=== PATIENT | male | born 1955 | race Caucasian/White ===

== ENCOUNTER 2019-09-30 17:06 | Inpatient (IN) ==
[2019-09-30] MEDS ORDERED: FAMOTIDINE 20MG IV PUSH 20 MG/5 ML SYR IV STA ×2 (17:21→17:36)
[2019-09-30] MEDS ORDERED: SODIUM CHLORIDE 0.9% 1000ML 1,000 ML IV SCH (17:30)
[2019-09-30] MEDS ORDERED: PANTOprazole 80 MG in DEXTROSE 5% 100 ML IV ONE (17:30)
[2019-09-30] MEDS ORDERED: SODIUM CHLORIDE 0.9% 250 ML IV PRN (17:44)
[2019-09-30 17:50] LABS: iSTAT Creatinine 1.9 mg/dl (0.6-1.3); iSTAT Hemoglobin 5.4 g/dl (14.0-18.0); iSTAT Ionized Calcium 1.06 mmol/l (1.12-1.32); iSTAT Potassium 4.4 mmol/L (3.3-5.0)
[2019-09-30 17:53] LABS: Alanine Aminotransferase 18 U/L (12-78); Albumin Level 2.8 gm/dl (3.4-5.0); Aspartate Aminotransferase 19 U/L (15-37); BUN Creatinine Ratio 55.4 (10-20); Blood Urea Nitrogen 101 mg/dl (7-18); Calcium 7.8 mg/dl (8.5-10.1); Carbon Dioxide 25 mmol/L (21-32); Chloride 100 mmol/L (98-107); Est GFR (African American) 43.6; Est GFR (Non-African American) 37.6; Glucose 189 mg/dl (70-99); Potassium 4.6 mmol/L (3.5-5.1); Sodium 134 mmol/L (136-145)
[2019-09-30 17:58] LABS: Albumin Globulin Ratio 1.2 (0.9-2); Alkaline Phosphatase 39 U/L (45-117); Bilirubin,Total 0.2 mg/dl (0.2-1); Globulin 2.4 gm/dl (2.5-4.0); Total Protein 5.2 gm/dl (6.4-8.2)
[2019-09-30 18:09] LABS: Partial Thromboplastin Ratio 1.3; Partial Thromboplastin Time 35.8 Seconds (21.0-31.0)
[2019-09-30 18:26] LABS: Hematocrit (blood only) 16.2 % (42-52); Hemoglobin 5.3 g/dL (14.0-18.0); Mean Corpuscular Hemoglobin 26.5 pg (25-34); Mean Corpuscular Hgb Conc 32.7 g/dL (32-36); Mean Platelet Volume 9.1 fL (7.4-10.4); Platelet Count 207 K/uL (130-400); RDW Coefficient of Variation 19.2 % (11.5-14.5); RDW Standard Deviation 55.2 fL (36.4-46.3); White Blood Count 20.96 K/uL (4.8-10.8)
--- NOTE | 2019-09-30 18:26 | XRay Report ---
SINGLE VIEW CHEST CLINICAL HISTORY: Dyspnea. FINDINGS: 2 AP, portable, upright chest radiographs are obtained. No prior studies are available for comparison at the time of dictation. The examination is degraded by portable technique and patient ro tation. The patient is status post midline sternotomy and cardiac valve surgery. The heart is enlarge d noting atherosclerotic calcification of the thoracic aorta. The pulmonary vasculature is noncongest ed. Emphysematous change is noted. There is bibasilar scarring/atelectasis. No airspace consolidation or large pleural effusion is identified. Enlargement of the central pulmonary arteries suggests pulm onary artery hypertension. No pneumothorax is seen. The skeletal structures are osteopenic. The bony thorax is grossly intact. Degenerative change is noted in the shoulders and thoracic spine. IMPRESSION: Cardiomegaly and emphysema with no acute cardiopulmonary abnormality. ACT 112: Negative or not required by law. Electronically signed by: Otis Stewart M.D. 09/30/2019 6:25 PM
[2019-09-30] MEDS ORDERED: PIPERACILL/TAZOBAC CONSULT ACTIVE PRN (18:28)
[2019-09-30] MEDS ORDERED: SODIUM CHLORIDE 0.9% 1000ML 500 ML IV ONE (18:28)
[2019-09-30] MEDS ORDERED: PIPERACILLIN/TAZOBACTAM 4.5 GM/120 ML BAG IV ONE (18:28)
[2019-09-30] MEDS ORDERED: PHYTONADIONE 10 MG in SODIUM CHLORIDE 0.9% 50 ML IV ONE (18:38)
[2019-09-30] MEDS ORDERED: KCENTRA IV ONE (18:45)
[2019-09-30 18:49] LABS: Anisocytosis Present; Basophilic Stippling Occasional; Basophils # (auto) 0.03 K/uL (0-0.2); Basophils % (auto) 0.1 %; Eosinophils # (auto) 0.19 K/uL (0-0.5); Eosinophils % (auto) 0.9 %; Immature Granulocytes # (auto) 0.31 K/uL (0.00-0.02); Immature Granulocytes % (auto) 1.5 %; Lymphocytes # (auto) 2.04 K/uL (1.2-3.4); Lymphocytes % (auto) 9.7 %; Monocytes # (auto) 0.68 K/uL (0.11-0.59); Monocytes % (auto) 3.2 %; Neutrophils # (auto) 17.71 K/uL (1.4-6.5); Neutrophils % (auto) 84.6 %; Polychromasia 1+
[2019-09-30] MEDS ORDERED: PHYTONADIONE 10 MG in SODIUM CHLORIDE 0.9% 50 ML IV SCH (19:00)
--- NOTE | 2019-09-30 19:41 | History & Physical Report ---
Date of Service September 30, 2019 Assessment & Plan (1) Upper gastrointestinal bleed: (2) Anemia: (3) Supratherapeutic INR: (4) H/O mechanical aortic valve replacement: -Admit to ICU -Patient presenting for evaluation of lightheadedness, dizziness, black stools. 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 -According to the patient, he was admitted to [facility] in [place], [place] for stomach ulcer, required blood transfusion. Patient is anticoagulated on Coumadin for history of mechanical aortic valve replacement, Coumadin was resumed at the end of the hospitalization. Will obtain records. -In the ED, Hgb 5.3, INR 4.0, hypotensive with systolic BPs in the 90s -ED discussed case with Dr. Fish who recommends vitamin K and Kcentra -2 units PRBC transfusion -CT ABD/pelvis -S/p IV famotidine and PPI bolus and drip in ED, will continue PPI drip -N.p.o. -GI consult -Noted history of gastric bypass in 2000 (5) Leukocytosis: -WBC 20 K -No obvious infectious source at this time, checking CT ABD/pelvis -? Stress response from severe GI bleeding -Lactate 1.9 -Blood cultures obtained (6) Abnormal renal function: -Creatinine 1.8, unknown baseline -Obtain records from recent hospitalization -Continue to monitor renal functions (7) Hypertension: -Currently hypotensive, holding lisinopril and HCTZ (8) COPD (chronic obstructive pulmonary disease): -Has some wheezing seen on exam -Denies sputum production, hold on antibiotics for now -PRN nebs, continue home inhalers (9) DVT prophylaxis: -SCDs due to acute GI bleeding History of Present Illness Chief Complaint: Lightheadedness and dizziness Primary Care Provider: NO PCP 64-year-old male who presents the ED for evaluation of lightheadedness and dizziness. 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 About 8 weeks ago, he reports he was diagnosed with a stomach ulcer. Reports that he was hospitalized and required blood transfusion. Patient is anticoagulated on Coumadin for history of mechanical aortic valve replacement. Coumadin was resumed after hospitalization. Patient reports that 3 days ago, he noted his stools were black. He self stopped his Coumadin. He did not seek medical attention. Patient reports he has had progressively worsening lightheadedness and dizziness. He reports he decided to drive his truck anyway. Lightheadedness and dizziness became so severe today that he pulled over and called EMS. Patient was brought to the ED for further evaluation. Patient denies syncopal events. No chest pain. Reports exertional shortness of breath over the past couple of days. Has a dry, nonproductive cough which he has intermittently. No sputum production. Denies fevers and chills. No abdominal pain, nausea, vomiting, diarrhea. Denies urinary symptoms. In the ED, Hgb 5.3, INR 4.0. Hypotensive with systolic BPs in the 90s, improving after IVF. WBC 20 K. ED discussed case with Dr. Fish who recommends IV vitamin K and Kcentra. Patient was given a Protonix bolus and started on a drip, also given IV famotidine and IV Zosyn. Allergies Allergy/AdvReac Type Severity Reaction Status Date / Time "Cough medicine" AdvReac Unknown "Jittery" Uncoded 09/30/19 17:28 / "couldn't sleep" Home Medications Home Medications Medication Instructions Recorded Confirmed Type amlodipine 2.5 mg PO DAILY 09/30/19 09/30/19 History budesonide-formoterol [Symbicort] 2 puff INHALATION BID PRN 09/30/19 09/30/19 History cyanocobalamin (vitamin B-12) 2,500 mcg SUBLINGUAL DAILY 09/30/19 09/30/19 History [Vitamin B-12] diphenhydramine-acetaminophen 1 tab PO HS PRN 09/30/19 09/30/19 History [Tylenol PM Extra Strength] [id number] 1 inh INHALATION DAILY 09/30/19 09/30/19 History [Trelegy Ellipta] hydrochlorothiazide 25 mg PO DAILY 09/30/19 09/30/19 History iron 28 mg PO DAILY 09/30/19 09/30/19 History lisinopril 40 mg PO DAILY 09/30/19 09/30/19 History naproxen sodium 220 mg PO Q12H PRN 09/30/19 09/30/19 History warfarin 5 mg PO DAILY 09/30/19 09/30/19 History Past Med/Surg History Medical History COPD (chronic obstructive pulmonary disease) CVA (cerebral vascular accident) Hypertension Surgical History H/O gastric bypass H/O mechanical aortic valve replacement Family History Mother Lung cancer Father Emphysema lung Social History Preferred Language: German Communication Ability: Effective Esthetician/Spa Coordinator Required: No Beliefs That Will Affect Care: None Current Living Situation: Spouse current occupational status: employed Other Information That Helps Us Care for You: No Feels Safe at Home: Yes Safety Concerns: Feels Safe At This Time Smoking Status: Former smoker Tobacco Type: smokeless tobacco ; Do You Dip or Chew Tobacco: Yes ; Hx Alcohol Use: Yes Alcohol type: beer and hard liquor Alcohol Intake Frequency: Rarely Hx Substance Use: No Review of Systems Review of Systems: ROS per HPI, all other systems reviewed and negative Physical Exam Constitutional: WD/WN, vitals as above no acute distress Eyes: PERRL, conjunctivae normal, anicteric sclerae ENMT: external ear and nose normal, oropharynx normal Respiratory: normal respiratory effort; no respiratory distress Auscultation: + wheezes (Scattered, expiratory) Cardiovascular: Rate/Rhythm: regular rate and regular rhythm Vessels: normal peripheral pulses Extremities: no edema Gastrointestinal (Abdomen): normal bowel sounds, soft, nontender, no hepatosplenomegaly Inspection/Auscultation: + abdomen distended Musculoskeletal: no cyanosis or clubbing, extremities motor strength 5/5 Skin: no rashes, warm and dry + pallor Neurologic: PERRL, EOMI, accommodation nl, no face palsy, no dysarthria Psychiatric: A+Ox3, euthymic affect Results & Data Vital Signs (Past 12 Hours) Vital Signs Temp Pulse Pulse Resp BP BP Pulse Ox 09/30/19 19:28 36.6 C 86 20 103/55 L 94 09/30/19 19:20 36.6 C 81 18 103/44 L 91 09/30/19 19:01 81 24 97 09/30/19 19:00 82 24 96/46 L 100 09/30/19 18:57 82 22 97/39 L 97 09/30/19 18:45 85 21 94/41 L 94 09/30/19 18:44 82 86 21 98/47 L 94/41 L 92 09/30/19 18:31 85 24 86/34 L 93 09/30/19 18:30 84 27 H 09/30/19 18:15 79 22 91/47 L 89 L 09/30/19 18:03 87 22 95/43 L 92 09/30/19 18:01 86 21 95/43 L 93 09/30/19 18:00 86 20 09/30/19 17:45 88 22 09/30/19 17:41 88 20 09/30/19 16:54 37.1 C 89 24 104/43 L 94 Laboratory Results Short CBC 09/30/19 Range/Units 16:46 WBC 20.96 H (4.8-10.8) K/uL Hgb 5.3 L* (14.0-18.0) g/dL Hct 16.2 L* (42-52) % Plt Count 207 (130-400) K/uL BMP 09/30/19 16:46 Sodium 134 L Potassium 4.6 Chloride 100 Carbon Dioxide 25 BUN 101 H Creatinine 1.83 H Glucose 189 H Calcium 7.8 L Cardiac Enzymes 09/30/19 Range/Units 16:46 Troponin I 0.020 (0-0.045) ng/ml Liver Function 09/30/19 Range/Units 16:46 Total Bilirubin 0.2 (0.2-1) mg/dl AST 19 (15-37) U/L ALT 18 (12-78) U/L Alkaline Phosphatase 39 L (45-117) U/L Albumin 2.8 L (3.4-5.0) gm/dl Diagnostic Findings CXR IMPRESSION: Cardiomegaly and emphysema with no acute cardiopulmonary abn ormality. Code Status & VTE Plan Code Status Patient is a full code as per my discussion with him. VTE Prophylaxis Plan VTE Prophylaxis will be ordered: Yes Supervising Physician Co-Signing Physician Notes Care coordinated with KETTY Billy. Agree with above note. Patient seen and examined. Please refer to her notes for full details. Vital signs reviewed. Physical exam: General exam: Alert and oriented. Not in acute distress. CVS: S1 and S2 heard, regular rate and rhythm, no murmurs. RS: Clear to auscultation, no wheezing or crackles. ABD: Soft, bowel sounds present, nontender, no distention. FIELD ATTENDANT: Nonfocal. EXT: No edema, no erythema. Labs: Reviewed. Assessment and plan: 64M who was recently admitted to hospital in [place] and received prbc transfusion for GI bleed and coumadin resumed on discharge for his mechanical AVR presents with 3 days of black stools, SOB on exertion, Dizziness. 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 GI Bleed Hb 5.3 on presentation ppi drip to transfuse prbc to keep hb>8.0 Admitted to ICU. close monitor GI consult mechanical AVR coumadin 4.0 on presentation received vitamin k and kaycentra. follow INR. Restarting anticogulation as soon as possible. Hx of gastric bypass surgery Other diagnosis and plan of care as per Marissa HDEZ. Addison li MD. (1) Leukocytosis Leukocytosis type: unspecified Qualified Code(s): D72.829 - Elevated white blood cell count, unspecified
[2019-09-30] MEDS: PANTOprazole 40 MG in DEXTROSE 5% 100 ML IV SCH (19:43)
[2019-09-30] MEDS ORDERED: ICU PROTOCOL FOR HYPERGLYCEMIA PRN (20:54)
--- NOTE | 2019-09-30 20:59 | Critical Care Consultation ---
Date of Consultation September 30, 2019 Assessment & Plan (1) Admitted to intensive care unit: Reason Critically Ill: 64-year-old male with presumed upper GI bleed complicated by history of gastric bypass surgery as well as recent intervention for gastric ulcer within the last 8 weeks. NEURO - * CAM ICU: NEGATIVE * Monitor for changes in mental status suggesting hypoperfusion in the anemic patient. CARDIAC/VASCULAR - * h/o aortic mechanical valve repair secondary to rheumatic heart disease: * Previously anticoagulated on Coumadin. * Received PCC/vitamin K secondary to significant anemia from GI losses. * Will monitor closely as patient certainly is at risk for coagulopathy. * Monitor on telemetry. RESPIRATORY - * COPD. * Saturating well on room air. * Assess and treat as needed. * Continue home Rx. GI/NUTRITION - * Presumed UGIB: * Melanotic stools w/ recent h/o gastric ulcer w/ intervention. * Complicated by Coumadin use. * Reversed w/ PCC, Vitamin K. * Will transfuse. * Protonix gtt. * Discussed the case with Dr. Sierra of [facility]. There is no concern with prior history of gastric bypass surgery which would require any higher level of direct diagnostic imaging capability that we have at this facility. * Appreciate GI recommendations after appropriate resuscitation. * NPO pending need for possible intervention. RENAL/LYTES - * CHARMAINE: * This is with presumed normal baseline renal function. * IVF: NSS@100mL/hr - * No concerns at this point. ENDO - * No h/o DM or Known thyroid disease. * BSGs per unit protocol. ISS --> gtt per unit policy. HEME - * Acute blood loss anemia 2/2 UGIB: * Per Dr. Muniz, received appropriate dosing of PCCs/Vitamin K for rever nir. * Will transfuse PRBCs x2 to start w/ a goal hemoglobin of ~8. * Hold home Coumadin dosing for now. ID - * SBP Prophylaxis: * Will cover w/ Rocephin in the UGIB patient w/o known h/o esophageal varices or cirrhosis. * Chose Rocephin as Cefotaxime is unavailable at this institution and Zosyn is not necessary, particularly in regards to patient's renal function. * Lactate WNL * Leukocytosis of ?? significance at this point. LINES/IV ACCESS - * PIVs x2 DVT PROPHYLAXIS - * Will hold on chemoprophylaxis 2/ UGIB * SCDs I have personally spent 35 minutes of critical care time in the direct man agement of this patient. This is a life/limb threatening event. This includes time spent evaluating patient, direct bedside care, chart review, placing orders, interpretation of diagnostic studies, discussion with consultants, patient, and family members, as well as other required patient management activities. This time is exclusive of all separately billable procedures, and teaching time and separate from and in addition to any other critical care service time. Thank you for allowing us to participate in the care of this patient. Please refer to my attending physician's documentation for any further recommendations. (2) Upper gastrointestinal bleed: (3) Hypotension: (4) Elevated INR (international normalized ratio): (5) COPD (chronic obstructive pulmonary disease): (6) Leukocytosis: (7) H/O mechanical aortic valve replacement: (8) Anemia: (9) Hypertension: (10) Abnormal renal function: (11) Anemia due to blood loss: Supervising Physician Co-Signing Physician Notes I evaluated the patient in C 9 of the emergency department. During my evaluation the patient was not complaining of chest pain or shortness of breath. He was already receiving 1 unit of packed red blood cells. Patient is critically ill due to known gastric ulcer diagnosed approximately 8 weeks ago for which he was given 5 units of packed red blood cells. 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 We [facility] [place] [facility] practitioner florian. We discussed the case with Dr. Sierra who is agreeable with accepting the patient for possible endoscopic evaluation. We will continue with packed red blood cell resuscitation. He received Kcentra in the emergency department. Patient is not complaining of abdominal pain to make me suspect he has a perforated ulcer at this time. Aside from his gastric bypass he has not had repeat surgery since then. History of Present Illness Attending Physician: Jacinta Garcia MD History of Present Illness Patient is a 64-year-old male with significant past medical history of COPD, hypertension, history of mechanical aortic valve replacement secondary to rheumatic fever, and prior history of gastric bypass surgery. 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 He reports that he was traveling through the area on his way home and had noticed over the last 3 to 4 days that he has had black/tarry stools. He did stop his Coumadin, but noted persistent black stools. Today, he had increasing dizziness, lightheadedness, and dyspnea on exertion. He did parked his truck and contacted EMS who subsequently brought him to the emergency department for further evaluation and management. In the emergency department, the patient was noted to be moderately hypotensive. Additionally, he had a leukocytosis of greater than 20,000 and an H&H of 5.3 and 16.2, respectively. His INR was slightly elevated at 4.0. Patient is presumed to have an CHARMAINE, however records not available at this time. His creatinine is 1.83. Lactic acid was not elevated. On evaluation in the emergency department, the patient is awake, alert, and oriented. He reports that he had a history of a gastric ulcer in unknown location approximately 8 weeks ago which did require upper endoscopy with some form of intervention, however he was not aware of exactly what all was done. He states that during that stay, he received a total of 5 units PRBCs. He restarted his Coumadin shortly after discharge. The patient had been doing well up until 3 to 4 days ago when he noted black stools. Despite these symptoms, he adamantly denies any hematemesis or bright red blood per rectum. Other than lightheadedness and shortness of breath, the patient denies any headaches, blurry vision, syncope, chest pain, palpitations, hemoptysis, nausea, vomiting, or generalized weakness. He denies any abdominal pain at this point rating his discomfort is 0/10. Patient is a prior smoker. Allergies Allergy/AdvReac Type Severity Reaction Status Date / Time "Cough medicine" AdvReac Unknown "Jittery" Uncoded 09/30/19 17:28 / "couldn't sleep" Home Medications Home Medications Medication Instructions Recorded Confirmed Type amlodipine 2.5 mg PO DAILY 09/30/19 09/30/19 History budesonide-formoterol [Symbicort] 2 puff INHALATION BID PRN 09/30/19 09/30/19 History cyanocobalamin (vitamin B-12) 2,500 mcg SUBLINGUAL DAILY 09/30/19 09/30/19 History [Vitamin B-12] diphenhydramine-acetaminophen 1 tab PO HS PRN 09/30/19 09/30/19 History [Tylenol PM Extra Strength] [id number] 1 inh INHALATION DAILY 09/30/19 09/30/19 History [Trelegy Ellipta] hydrochlorothiazide 25 mg PO DAILY 09/30/19 09/30/19 History iron 28 mg PO DAILY 09/30/19 09/30/19 History lisinopril 40 mg PO DAILY 09/30/19 09/30/19 History naproxen sodium 220 mg PO Q12H PRN 09/30/19 09/30/19 History warfarin 5 mg PO DAILY 09/30/19 09/30/19 History Patient History Medical History COPD (chronic obstructive pulmonary disease) CVA (cerebral vascular accident) Hypertension Surgical History H/O gastric bypass H/O mechanical aortic valve replacement Family History Mother Lung cancer Father Emphysema lung Social History Preferred Language: Guyanese Communication Ability: Effective Glass Furnace Tender Required: No Beliefs That Will Affect Care: None Current Living Situation: Spouse current occupational status: employed Other Information That Helps Us Care for You: No Feels Safe at Home: Yes Safety Concerns: Feels Safe At This Time Smoking Status: Former smoker Tobacco Type: smokeless tobacco ; Do You Dip or Chew Tobacco: Yes ; Hx Alcohol Use: Yes Alcohol type: beer and hard liquor Alcohol Intake Frequency: Rarely Hx Substance Use: No Review of Systems Review of Systems: A complete 10 point review of systems was reviewed with the patient with pertinent positives and negatives as per history of present illness. All else were negative. Physical Exam Physical Exam: VITAL SIGNS - Vital signs and nursing notes were reviewed. GENERAL - 64-year-old male appearing his stated age who is in no acute distress. Communicates well with provider and answers questions appropriately. HEAD - NC/AT. EYES - PERRL with EOMI bilaterally. Sclera anicteric. Palpebral conjunctiva pink and moist with no injection noted. EARS - No deformities of external structures noted on gross examination bilate rally. NOSE - Midline and without cyanosis. MOUTH/OROPHARYNX - Without perioral cyanosis. Buccal mucosa pink and moist and without leukoplakia. NECK - Neck with FROM. No nuchal rigidity. LUNGS - Chest wall symmetric without accessory muscle use, intercostals retractions, or central cyanosis. Normal vesicular breath sounds CTA B/L. No wheezes, rales, or rhonchi appreciated. CARDIAC - RRR with S1/S2. No murmur, rubs, or gallops appreciated. ABDOMEN - Abdominal contour obese. Palpable midline hernia. No TTP throughout. BS normoactive all four quadrants. No palpable masses, hepatosplenomegaly, or ascites noted. EXTREMITIES - No clubbing or peripheral cyanosis. No pretibial edema present. +3/5 radial and dorsalis pedis pulses palpated throughout. +5/5 strength noted in UE/LE bilaterally. NEUROLOGIC - Cranial nerves II through XII grossly intact. Sensory intact to light touch throughout. PSYCH - A&Ox3 and cooperates fully with examiner. Pt is very pleasant and interacts well with examiner. Results & Data Vital Signs (Past 12 Hours) Vital Signs Temp Pulse Pulse Resp BP BP Pulse Ox 09/30/19 20:17 86 18 124/47 L 97 09/30/19 19:56 36.8 C 74 18 105/55 L 93 09/30/19 19:41 76 18 119/52 L 97 09/30/19 19:37 36.8 C 79 20 140/48 L 97 09/30/19 19:28 36.6 C 86 20 103/55 L 94 09/30/19 19:20 36.6 C 81 18 103/44 L 91 09/30/19 19:01 81 24 97 09/30/19 19:00 82 24 96/46 L 100 09/30/19 18:57 82 22 97/39 L 97 09/30/19 18:45 85 21 94/41 L 94 09/30/19 18:44 82 86 21 98/47 L 94/41 L 92 09/30/19 18:31 85 24 86/34 L 93 09/30/19 18:30 84 27 H 09/30/19 18:15 79 22 91/47 L 89 L 09/30/19 18:03 87 22 95/43 L 92 09/30/19 18:01 86 21 95/43 L 93 09/30/19 18:00 86 20 09/30/19 17:45 88 22 09/30/19 17:41 88 20 09/30/19 16:54 37.1 C 89 24 104/43 L 94 Coding Level of Care Code Critical Care 1st 30-74 mins Diagnoses Admitted to intensive care unit Z78.9 Upper gastrointestinal bleed K92.2 Hypotension I95.9 Hypotension type: unspecified hypotension type Elevated INR (international normalized ratio) R79.1 COPD (chronic obstructive pulmonary disease) J44.9 Leukocytosis D72.829 Leukocytosis type: unspecified H/O mechanical aortic valve replacement Z95.2 Anemia D64.9 Hypertension I10 Abnormal renal function N28.9 Anemia due to blood loss D50.0 (1) Leukocytosis Leukocytosis type: unspecified Qualified Code(s): D72.829 - Elevated white blood cell count, unspecified (2) Hypotension Hypotension type: unspecified hypotension type Qualified Code(s): I95.9 - Hypotension, unspecified
[2019-09-30] MEDS: cefTRIAXone SODIUM 2,000 MG in DEXTROSE 5% 50 ML IV SCH (22:17)
--- NOTE | 2019-09-30 22:41 | Emergency Department Note ---
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 The patient reports he called EMS because his shortness of breath and dizziness worsened. EMS reports upon arrival, the patient was tachypneic, pale, and diaphoretic. EMS also notes the patient had bilateral wheezes in the lower lobes, right greater than left. As per EMS, the patient had pneumonia 6 weeks ago and was treated at [facility]. The patient was in the hospital for his pneumonia and was treated at [facility] in [place]. While there, he was scoped, had an ulcer cauterized, and was given 5 units of blood. The patient states for the past 2 days, he has had black and bloody stools. Pt denies LOC, headache, fevers, chills, visual changes, neck pain, chest pain, nausea, vomiting, abdominal pain, back pain, urinary symptoms, numbness, lymphadenopathy, rash, or other complaints. The patient was on Warfarin but stopped taking it 2 days ago. REVIEW OF SYSTEMS: See HPI for pertinent positives and negatives. A total of ten systems were reviewed and were otherwise negative. PMHx/PSHx: HTN Gastric Bypass Aortic Valve Replacement COPD Stroke SOCIAL HISTORY: Patient lives at home. PHYSICAL EXAM: GENERAL: Awake, alert, well-appearing, in no distress HENT: Normocephalic, atraumatic. Oropharynx unremarkable. EYES: PERRL. Pale conjunctiva. Sclera non-icteric. NECK: Inspection normal. Non-tender. Supple. No nuchal rigidity. FROM. No masses. RESPIRATORY: Clear to auscultation. Scattered expiratory wheezes. No rales. Normal respiratory effort. CARDIAC: Normal rate. Normal rhythm. No murmurs. No rubs. Extremities warm and well perfused. Pulses equal. No JVD. Midline sternotomy scar healed GI: Soft, non-distended. No tenderness to palpation. No rebound or guarding. No masses. Midline abdominal incision scar healed. Ventral hernia present but nontender RECTAL: Deferred. MUSCULOSKELETAL: Atraumatic. Chest examination reveals no tenderness. The back is symmetrical on inspection without obvious abnormality. There is no CVA tenderness to palpation. No joint edema. LOWER EXTREMITIES: Calves are equal size bilaterally and non-tender. 1+ edema. No discoloration. NEURO: Normal sensorium. No sensory or motor deficits noted. SKIN: No rash or jaundice noted. EMERGENCY DEPARTMENT COURSE: 1711: The patient was evaluated in room C9, and a complete history and physical examination were performed. 1730: I verbally consented the patient for a blood transfusion at this time. 1747: The consent form for the blood transfusion was signed at this time. 2 units of blood were ordered. 1803: I reassessed the patient at this time and informed him of the treatment plan. 1840: Discussed the patient's case with Dr. García, [facility] Hospitalist. The patient will be evaluated for further management. 1850: I reassessed the patient at this time. He got an additional fluid bolus. His blood pressure was low. 2000: I reassessed the patient at this time. He is feeling better. Blood is transfusing. Hospitalist and perinatal specialist have come to see him. MEDICAL DECISION MAKING: Triage Nursing notes reviewed and agree them. Additional history obtained from the EMS. The patient's history was concerning for possible gastrointestinal bleeding. Differential diagnosis: Etiologies such as diverticulosis, AVM, coagulopathy, colitis, inflammatory bowel disease, malignancy,Ariadne-Glez tear, esophagitis, peptic ulcer disease, variceal bleed, gastritis, epistaxis, fissure, hemorrhoids, as well as others were entertained. Physical exam: As above. ER treatment provided: IV saline hydration Supplemental oxygen IV Pepcid IV Protonix bolus and drip Packed red blood cell transfusion IV Zosyn On reassessment the patient felt better. IV vitamin K IV K Centra Diagnostics interpreted by me: ECG: No acute ischemia The labs revealed a significant leukocytosis of 20,000. The patient had a pro found anemia of hemoglobin 5.3. Chemistry panel revealed an elevated BUN. This was concerning for upper GI bleeding source. Mild hyperglycemia noted. Troponin negative. Imaging studies: Negative for any infiltrate or acute infectious process. The patient has what appears to be another upper GI bleed. Consultation: A consultation was placed with anticoagulation. Given the acute bleeding, hy potension, and severe anemia it was felt that reversal of his INR of 4.0 was acutely indicated despite his aortic valve. The patient was given vitamin K and Kcentra in addition to his packed red blood cell transfusion. A consultation was placed with the hospitalist. The case was discussed and diagnostics were reviewed. The patient was evaluated in the ER for further treatment. IMPRESSION: Upper GI bleed Hypotension Supratherapeutic INR Leukocytosis PLAN: Being Evaluated by Hospitalist The scribe's documentation has been prepared under my direction and personally reviewed by me in its entirety. I confirm that the note above accurately reflects all work, treatment, procedures, and medical decision making performed by me. 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 Beliefs That Will Affect Care: None Current Living Situation: Spouse current occupational status: employed Other Information That Helps Us Care for You: No Feels Safe at Home: Yes Safety Concerns: Feels Safe At This Time Smoking Status: Former smoker Tobacco Type: smokeless tobacco ; Do You Dip or Chew Tobacco: Yes ; Hx Alcohol Use: Yes Alcohol type: beer and hard liquor Alcohol Intake Frequency: Rarely Hx Substance Use: No Results & Data Vital Signs Vital Signs - 24 hr 09/30/19 16:54 09/30/19 17:41 09/30/19 17:45 Temperature 37.1 C Temperature Source Oral Pulse Rate 89 88 88 Pulse Rate [Finger] Pulse Rate from SpO2 Sensor Pulse Rhythm Regular Pulse Strength Normal Respiratory Rate 24 20 22 Respiratory Effort / Characteristics Non-Labored Spontaneous Respiratory Depth Normal Respiratory Pattern Regular Blood Pressure 104/43 L Blood Pressure [Right Arm] Blood Pressure Mean 63 Blood Pressure Mean [Right Arm] Blood Pressure Position Lying Pulse Oximetry 94 Oxygen Delivery Method Room Air Sepsis Recent Fever Within 48 Hours No Sepsis New/Unexplained Change in Mental Status No Sepsis Action Taken by Nursing No Action Required 09/30/19 18:00 09/30/19 18:01 09/30/19 18:03 Temperature Temperature Source Pulse Rate 86 86 Pulse Rate [Finger] 87 Pulse Rate from SpO2 Sensor 85 Pulse Rhythm Pulse Strength Respiratory Rate 20 21 22 Respiratory Effort / Characteristics Respiratory Depth Respiratory Pattern Blood Pressure 95/43 L Blood Pressure [Right Arm] 95/43 L Blood Pressure Mean 65 Blood Pressure Mean [Right Arm] 60 Blood Pressure Position Pulse Oximetry 93 92 Oxygen Delivery Method Room Air Sepsis Recent Fever Within 48 Hours Sepsis New/Unexplained Change in Mental Status Sepsis Action Taken by Nursing 09/30/19 18:15 09/30/19 18:30 09/30/19 18:31 Temperature Temperature Source Pulse Rate 79 84 85 Pulse Rate [Finger] Pulse Rate from SpO2 Sensor 81 86 85 Pulse Rhythm Pulse Strength Respiratory Rate 22 27 H 24 Respiratory Effort / Characteristics Respiratory Depth Respiratory Pattern Blood Pressure 91/47 L 86/34 L Blood Pressure [Right Arm] Blood Pressure Mean 77 55 Blood Pressure Mean [Right Arm] Blood Pressure Position Pulse Oximetry 89 L 93 Oxygen Delivery Method Sepsis Recent Fever Within 48 Hours Sepsis New/Unexplained Change in Mental Status Sepsis Action Taken by Nursing 09/30/19 18:44 09/30/19 18:45 09/30/19 18:57 Temperature Temperature Source Pulse Rate 82 85 82 Pulse Rate [Finger] 86 Pulse Rate from SpO2 Sensor 82 85 82 Pulse Rhythm Pulse Strength Respiratory Rate 21 21 22 Respiratory Effort / Characteristics Respiratory Depth Respiratory Pattern Blood Pressure 98/47 L 94/41 L 97/39 L Blood Pressure [Right Arm] 94/41 L Blood Pressure Mean 67 62 68 Blood Pressure Mean [Right Arm] 58 Blood Pressure Position Pulse Oximetry 92 94 97 Oxygen Delivery Method Room Air Sepsis Recent Fever Within 48 Hours Sepsis New/Unexplained Change in Mental Status Sepsis Action Taken by Nursing 09/30/19 19:00 09/30/19 19:01 Temperature Temperature Source Pulse Rate 82 81 Pulse Rate [Finger] Pulse Rate from SpO2 Sensor 83 81 Pulse Rhythm Pulse Strength Respiratory Rate 24 24 Respiratory Effort / Characteristics Respiratory Depth Respiratory Pattern Blood Pressure 96/46 L Blood Pressure [Right Arm] Blood Pressure Mean 51 Blood Pressure Mean [Right Arm] Blood Pressure Position Pulse Oximetry 100 97 Oxygen Delivery Method Sepsis Recent Fever Within 48 Hours Sepsis New/Unexplained Change in Mental Status Sepsis Action Taken by Long Term Medications Current Medication List: was personally reviewed by me Laboratory Data Attestation: I reviewed the patient's lab results. Result diagrams: 09/30/19 16:46 09/30/19 16:46 Lab Results 09/30/19 09/30/19 09/30/19 Range/Units 16:46 16:46 16:46 WBC 20.96 H (4.8-10.8) K/uL RBC 2.00 L (4.7-6.1) M/uL Hgb 5.3 L* (14.0-18.0) g/dL POC Hgb (14.0-18.0) g/dl Hct 16.2 L* (42-52) % POC Hct (42-52) % MCV 81.0 (80-100) fL MCH 26.5 (25-34) pg MCHC 32.7 (32-36) g/dL RDW Std Deviation 55.2 H (36.4-46.3) fL RDW Coeff of Ha 19.2 H (11.5-14.5) % Plt Count 207 (130-400) K/uL MPV 9.1 (7.4-10.4) fL Immature Gran % (Auto) 1.5 % Neut % (Auto) 84.6 % Lymph % (Auto) 9.7 % [place] % (Auto) 3.2 % Eos % (Auto) 0.9 % Baso % (Auto) 0.1 % Immature Gran # (Auto) 0.31 H (0.00-0.02) K/uL Neut # (Auto) 17.71 H (1.4-6.5) K/uL Lymph # (Auto) 2.04 (1.2-3.4) K/uL [place] # (Auto) 0.68 H (0.11-0.59) K/uL Eos # (Auto) 0.19 (0-0.5) K/uL Baso # (Auto) 0.03 (0-0.2) K/uL Polychromasia 1+ Basophilic Stippling Occasional Anisocytosis Present PT 37.0 H (9.0-12.0) Seconds INR 4.0 H (0.9-1.1) APTT 35.8 H (21.0-31.0) Seconds PTT Ratio 1.3 POC Sodium (135-144) mmol/L Sodium 134 L (136-145) mmol/L POC Potassium (3.3-5.0) mmol/L Potassium 4.6 (3.5-5.1) mmol/L POC Chloride (101-112) mmol/L Chloride 100 (98-107) mmol/L Carbon Dioxide 25 (21-32) mmol/L POC Total CO2 (24-31) mEq/l Anion Gap 8.0 (3-11) POC Anion Gap (16-25) mmol/L POC BUN (7-18) mg/dl BUN 101 H (7-18) mg/dl Creatinine 1.83 H (0.6-1.4) mg/dl POC Creatinine (0.6-1.3) mg/dl Est Cr Clr Drug Dosing Not Reportable Est GFR ( Amer) 43.6 Est GFR (Non-Af Amer) 37.6 BUN/Creatinine Ratio 55.4 H (10-20) Glucose 189 H (70-99) mg/dl POC Glucose (other) (70-99) mg/dl Lactate (0.4-2.0) mmol/L Calcium 7.8 L (8.5-10.1) mg/dl POC Ioniz Calcium Katelyn (1.12-1.32) mmol/l Total Bilirubin 0.2 (0.2-1) mg/dl AST 19 (15-37) U/L ALT 18 (12-78) U/L Alkaline Phosphatase 39 L (45-117) U/L Troponin I 0.020 (0-0.045) ng/ml Total Protein 5.2 L (6.4-8.2) gm/dl Albumin 2.8 L (3.4-5.0) gm/dl Globulin 2.4 L (2.5-4.0) gm/dl Albumin/Globulin Ratio 1.2 (0.9-2) Blood Type Blood Type Recheck Antibody Screen Crossmatch 09/30/19 09/30/19 09/30/19 Range/Units 17:22 17:35 18:55 WBC (4.8-10.8) K/uL RBC (4.7-6.1) M/uL Hgb (14.0-18.0) g/dL POC Hgb 5.4 L* (14.0-18.0) g/dl Hct (42-52) % POC Hct 16 L* (42-52) % MCV (80-100) fL MCH (25-34) pg MCHC (32-36) g/dL RDW Std Deviation (36.4-46.3) fL RDW Coeff of Ha (11.5-14.5) % Plt Count (130-400) K/uL MPV (7.4-10.4) fL Immature Gran % (Auto) % Neut % (Auto) % Lymph % (Auto) % [place] % (Auto) % Eos % (Auto) % Baso % (Auto) % Immature Gran # (Auto) (0.00-0.02) K/uL Neut # (Auto) (1.4-6.5) K/uL Lymph # (Auto) (1.2-3.4) K/uL [place] # (Auto) (0.11-0.59) K/uL Eos # (Auto) (0-0.5) K/uL Baso # (Auto) (0-0.2) K/uL Polychromasia Basophilic Stippling Anisocytosis PT (9.0-12.0) Seconds INR (0.9-1.1) APTT (21.0-31.0) Seconds PTT Ratio POC Sodium 132 L (135-144) mmol/L Sodium (136-145) mmol/L POC Potassium 4.4 (3.3-5.0) mmol/L Potassium (3.5-5.1) mmol/L POC Chloride 97 L (101-112) mmol/L Chloride (98-107) mmol/L Carbon Dioxide (21-32) mmol/L POC Total CO2 23 L (24-31) mEq/l Anion Gap (3-11) POC Anion Gap 18.0 (16-25) mmol/L POC BUN 105 H* (7-18) mg/dl BUN (7-18) mg/dl Creatinine (0.6-1.4) mg/dl POC Creatinine 1.9 H (0.6-1.3) mg/dl Est Cr Clr Drug Dosing Est GFR ( Amer) Est GFR (Non-Af Amer) BUN/Creatinine Ratio (10-20) Glucose (70-99) mg/dl POC Glucose (other) 179 H (70-99) mg/dl Lactate (0.4-2.0) mmol/L Calcium (8.5-10.1) mg/dl POC Ioniz Calcium Katelyn 1.06 L (1.12-1.32) mmol/l Total Bilirubin (0.2-1) mg/dl AST (15-37) U/L ALT (12-78) U/L Alkaline Phosphatase (45-117) U/L Troponin I (0-0.045) ng/ml Total Protein (6.4-8.2) gm/dl Albumin (3.4-5.0) gm/dl Globulin (2.5-4.0) gm/dl Albumin/Globulin Ratio (0.9-2) Blood Type O Positive Blood Type Recheck O Positive Antibody Screen NEGATIVE Crossmatch See Detail 09/30/19 Range/Units 19:07 WBC (4.8-10.8) K/uL RBC (4.7-6.1) M/uL Hgb (14.0-18.0) g/dL POC Hgb (14.0-18.0) g/dl Hct (42-52) % POC Hct (42-52) % MCV (80-100) fL MCH (25-34) pg MCHC (32-36) g/dL RDW Std Deviation (36.4-46.3) fL RDW Coeff of Ha (11.5-14.5) % Plt Count (130-400) K/uL MPV (7.4-10.4) fL Immature Gran % (Auto) % Neut % (Auto) % Lymph % (Auto) % [place] % (Auto) % Eos % (Auto) % Baso % (Auto) % Immature Gran # (Auto) (0.00-0.02) K/uL Neut # (Auto) (1.4-6.5) K/uL Lymph # (Auto) (1.2-3.4) K/uL [place] # (Auto) (0.11-0.59) K/uL Eos # (Auto) (0-0.5) K/uL Baso # (Auto) (0-0.2) K/uL Polychromasia Basophilic Stippling Anisocytosis PT (9.0-12.0) Seconds INR (0.9-1.1) APTT (21.0-31.0) Seconds PTT Ratio POC Sodium (135-144) mmol/L Sodium (136-145) mmol/L POC Potassium (3.3-5.0) mmol/L Potassium (3.5-5.1) mmol/L POC Chloride (101-112) mmol/L Chloride (98-107) mmol/L Carbon Dioxide (21-32) mmol/L POC Total CO2 (24-31) mEq/l Anion Gap (3-11) POC Anion Gap (16-25) mmol/L POC BUN (7-18) mg/dl BUN (7-18) mg/dl Creatinine (0.6-1.4) mg/dl POC Creatinine (0.6-1.3) mg/dl Est Cr Clr Drug Dosing Est GFR ( Amer) Est GFR (Non-Af Amer) BUN/Creatinine Ratio (10-20) Glucose (70-99) mg/dl POC Glucose (other) (70-99) mg/dl Lactate 1.9 (0.4-2.0) mmol/L Calcium (8.5-10.1) mg/dl POC Ioniz Calcium Katelyn (1.12-1.32) mmol/l Total Bilirubin (0.2-1) mg/dl AST (15-37) U/L ALT (12-78) U/L Alkaline Phosphatase (45-117) U/L Troponin I (0-0.045) ng/ml Total Protein (6.4-8.2) gm/dl Albumin (3.4-5.0) gm/dl Globulin (2.5-4.0) gm/dl Albumin/Globulin Ratio (0.9-2) Blood Type Blood Type Recheck Antibody Screen Crossmatch Administered Medications Sodium Chloride (Nss 1000ml) 1,000 mls @ 100 mls/hr IV .Q10H JUHI Stop: 10/01/19 03:29 Last Admin: 09/30/19 17:44 Dose: 100 mls/hr Documented by: [id number] Pantoprazole Sodium 40 mg/ (Dextrose) 100 mls @ 20 mls/hr IV Q5H JUHI Stop: 10/30/19 17:44 Last Admin: 09/30/19 19:43 Dose: 20 mls/hr Documented by: [id number] Ceftriaxone Sodium 2,000 mg/ (Dextrose) 70 mls @ 100 mls/hr IV Q24H JUHI; Protocol Stop: 10/10/19 21:59 Last Admin: 09/30/19 22:17 Dose: 100 mls/hr Documented by: [id number] Discontinued Medications Pantoprazole Sodium 80 mg/ (Dextrose) 120 mls @ 480 mls/hr IV NOW ONE Stop: 09/30/19 17:44 Last Infusion: 09/30/19 18:23 Dose: 0 mls/hr Documented by: [id number] Admin: 09/30/19 17:50 Dose: 480 mls/hr Documented by: [id number] Famotidine (Pepcid 20mg Iv Push) 20 mg in 5 mls @ 2.5 mls/min IV NOW STA Stop: 09/30/19 17:37 Last Admin: 09/30/19 17:57 Dose: 2.5 mls/min Documented by: [id number] Sodium Chloride (Nss 1000ml) 500 mls @ 999 mls/hr IV .Q31M ONE Stop: 09/30/19 18:58 Last Infusion: 09/30/19 19:17 Dose: 0 mls/hr Documented by: [id number] Admin: 09/30/19 18:42 Dose: 999 mls/hr Documented by: [id number] Piperacillin Sod/Tazobactam Sod (Zosyn) 4.5 gm in 120 mls @ 240 mls/hr IV NOW ONE Stop: 09/30/19 18:57 Last Admin: 09/30/19 21:28 Dose: Not Given Documented by: [id number] Phytonadione 10 mg/ Sodium (Chloride) 51 mls @ 101 mls/hr IV TODAY@1900 JUHI Stop: 09/30/19 19:31 Last Infusion: 09/30/19 19:53 Dose: 0 mls/hr Documented by: [id number] Admin: 09/30/19 18:55 Dose: 101 mls/hr Documented by: [id number] Prothrombin Complex Concent ( (Human) 3,500 units/ Syringe) 140 mls @ 10 mls/min IV NOW ONE; Protocol Stop: 09/30/19 18:58 Last Admin: 09/30/19 19:30 Dose: 10 mls/min Documented by: [id number] Imaging Data Radiologist's Impression: Radiology results as stated below per my review and the radiologist's interpretation: SINGLE VIEW CHEST CLINICAL HISTORY: Dyspnea. FINDINGS: 2 AP, portable, upright chest radiographs are obtained. No prior studies are available for comparison at the time of dictation. The examination is degraded by portable technique and patient rotation. The patient is status post midline sternotomy and cardiac valve surgery. The heart is enlarged noting atherosclerotic calcification of the thoracic aorta. The pulmonary vasculature is noncongested. Emphysematous change is noted. There is bibasilar scarr ing/atelectasis. No airspace consolidation or large pleural effusion is identified. Enlargement of the central pulmonary arteries suggests pulmonary artery hypertension. No pneumothorax is seen. The skeletal structures are osteopenic. The bony thorax is grossly intact. Degenerative change is noted in the shoulders and thoracic spine. IMPRESSION: Cardiomegaly and emphysema with no acute cardiopulmonary abnormality. ACT 112: Negative or not required by law. Electronically signed by: Otis Stewart M.D. 09/30/2019 6:25 PM ECG Data Attestation: I personally reviewed and interpreted this ECG as follows: Indication: + other (illness) Rate (beats per minute): 87 Rhythm: normal sinus ECG ST segments: + T-wave inversions (Lateral) ECG Findings: + Q waves (Septal) and + Other (nonspecific intraventricular block) Comparison ECG Date: no prior available Blood Pressure Blood Pressure Findings: Low blood pressure Blood Pressure Disposition: further management by hospitalist Discharge Plan Visit Data *Final* Discharge Date/Time: 09/30/19 20:27 Chief Complaint: Illness Stated Complaint: DIZZINESS, BREATHING DIFF., COUGH ED Provider: Holden Arita Discharge Problem: Upper gastrointestinal bleed, Hypotension, Supratherapeutic INR, Leukocytosis Patient Disposition: Admitted As Inpatient Discharge Instructions Interventions: ED Discharge Assessment Last Done: 09/30/19 20:27 Critical Care Time Critical Care Time: Yes Total Critical Care Time: 120 Attestation: I have personally spent approximately 120 minutes of critical care time in the direct management of this patient. This includes bedside care, interpretation of diagnostic studies, and testing, discussion with consultants, patient, and family members, and other required patient management activities. This approximate 120 minutes is in excess of all separately billable procedures. Discharge Problem: Hypotension Qualifiers: Hypotension type: unspecified hypotension type Qualified Code(s): I95.9 - Hypotension, unspecified Leukocytosis Qualifiers: Leukocytosis type: unspecified Qualified Code(s): D72.829 - Elevated white blood cell count, unspecified The scribe's documentation has been prepared under my direction and personally reviewed by me in its entirety. I confirm that the note above accurately refle cts all work, treatment, procedures, and medical decision making performed by me.
[2019-10-01] MEDS: PANTOprazole 40 MG in DEXTROSE 5% 100 ML IV SCH ×5 (00:31→20:24)
[2019-10-01 02:13] LABS: Hemoglobin 6.6 g/dL (14.0-18.0); Mean Corpuscular Hemoglobin 27.3 pg (25-34); Mean Corpuscular Volume 82.6 fL (80-100); Mean Platelet Volume 8.7 fL (7.4-10.4); Platelet Count 165 K/uL (130-400); RDW Coefficient of Variation 17.7 % (11.5-14.5); RDW Standard Deviation 53.6 fL (36.4-46.3); Red Blood Count 2.42 M/uL (4.7-6.1); White Blood Count 14.23 K/uL (4.8-10.8)
[2019-10-01] MEDS ORDERED: SODIUM CHLORIDE 0.9% 250 ML IV PRN (02:14)
[2019-10-01 02:20] LABS: Prothrombin Time 10.7 Seconds (9.0-12.0)
[2019-10-01 02:30] LABS: Calcium 7.5 mg/dl (8.5-10.1); Creatinine Clr Calc Pharmacy 58.9 ml/min; Est GFR (African American) 61.3; Est GFR (Non-African American) 52.9; Magnesium 2.4 mg/dl (1.8-2.4); Phosphorus 3.2 mg/dl (2.5-4.9); Potassium 4.2 mmol/L (3.5-5.1)
[2019-10-01 07:46] LABS: Hematocrit (blood only) 24.9 % (42-52); Hemoglobin 8.3 g/dL (14.0-18.0)
--- NOTE | 2019-10-01 08:33 | Gastrointestinal Consultation ---
Date of Consultation October 01, 2019 Assessment & Plan (1) Anemia due to blood loss: 64 y/o male with PMHx PUD recently states he was scoped 8 weeks ago for bleeding ulcer and hemorrhagic anemia, now back on Coumadin for h/o mechanical AVR presented with 3 days of black stool. Upon arrival had supratherapeutic INR of 4, now 1 after reversal, HGB 5.3 on arrival now 8.3 s/p pRBC transfusion x 2. He is hemodynamically stable - Will plan for EGD - Continue PPI gtt - Continue IVF - Analgesia, antiemetics PRN - No NSAIDs, recommend ETOH/tobacco cessation (2) Elevated INR (international normalized ratio): (3) Upper gastrointestinal bleed: (4) History of peptic ulcer: Supervising Physician Co-Signing Physician Notes I have seen and examined the patient with Brad Coronado PA-C whose note reflects our findings and plan except as noted below. 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 Tells me he took PPI daily for 1 month then ran out and has not seen his PCP since that time. Was on NSAIDs prior to that bleed. Tells me has not taken any since. Admitted with several days of melena and hgb of 5 with hypotensiion. Resuscitated with blood and fluids. Now hemodynamically stable. INR was 4 and was reversed over night. Now 1. On PPI gtt. Denies any abd pain. last BM was yesterday. HR reg. Lungs with exp wheezes. Abd exam is benign continue PPI gtt EGD in the OR today. Anticoagulation on hold pending EGD findings. History of Present Illness Reason for Consultation: GI bleed Attending Physician: Jacinta Garcia MD History of Present Illness Mr. Gallegos is a 64 y/o male with PMHx Coumadin use for h/o mechanical AVR, COPD, HTN, obesity s/p RYGB 2000 who 8 weeks ago was admitted to a hospital in [place] for stomach ulcer (anastomotic?), had anemia and got 5 blood transfusions. Coumadin was then restarted along with oral iron and PPI BID. He felt well up until 3 days ago developed several solid black stools daily along with worsening dizziness. 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 On arrival to the ER HGB 5.3; WBC 20, BUN 105, supratherapeutic INR at 4.0. He was admitted and given Vit K and Kcentra, pRBC transfusion x 2. This AM HGB improved to 8.3, INR now 1.0; BUN 76. He is hypotensive this AM with systolics in the 80's. CXR without acute changes; cardiomegaly. Overnight he had 1 solid black stool. No hematemesis, hematochezia. Denies abd pain, n/v, heartburn, regurgitation, dysphagia. States he also had a similar presentation [place] state approx 3-4 years ago (hemorrhagic anemia with black stool, ulcer on EGD). He drinks approx 12 beers and 8 liquor drinks per week. + smoker. No NSAIDs. Pt states his Coumadin is managed through a Coumadin clinic in [place]; unsure of his last INR. Allergies Allergy/AdvReac Type Severity Reaction Status Date / Time "Cough medicine" AdvReac Unknown "Jittery" Uncoded 09/30/19 17:28 / "couldn't sleep" Home Medications Home Medications Medication Instructions Recorded Confirmed Type amlodipine 2.5 mg PO DAILY 09/30/19 09/30/19 History budesonide-formoterol [Symbicort] 2 puff INHALATION BID PRN 09/30/19 09/30/19 History cyanocobalamin (vitamin B-12) 2,500 mcg SUBLINGUAL DAILY 09/30/19 09/30/19 History [Vitamin B-12] diphenhydramine-acetaminophen 1 tab PO HS PRN 09/30/19 09/30/19 History [Tylenol PM Extra Strength] [id number] 1 inh INHALATION DAILY 09/30/19 09/30/19 History [Trelegy Ellipta] hydrochlorothiazide 25 mg PO DAILY 09/30/19 09/30/19 History iron 28 mg PO DAILY 09/30/19 09/30/19 History lisinopril 40 mg PO DAILY 09/30/19 09/30/19 History naproxen sodium 220 mg PO Q12H PRN 09/30/19 09/30/19 History warfarin 5 mg PO DAILY 09/30/19 09/30/19 History Patient History Medical History COPD (chronic obstructive pulmonary disease) CVA (cerebral vascular accident) Hypertension Surgical History H/O gastric bypass H/O mechanical aortic valve replacement Family History Mother Lung cancer Father Emphysema lung Social History Preferred Language: Albanian Communication Ability: Effective Cloth Measurer Required: No Beliefs That Will Affect Care: None Current Living Situation: Spouse current occupational status: employed Other Information That Helps Us Care for You: No Feels Safe at Home: Yes Safety Concerns: Feels Safe At This Time Smoking Status: Former smoker Tobacco Type: smokeless tobacco ; Do You Dip or Chew Tobacco: Yes ; Hx Alcohol Use: Yes Alcohol type: beer and hard liquor Alcohol Intake Frequency: Rarely Hx Substance Use: No Review of Systems Constitutional: no fever, no chills and no anorexia Respiratory: + COPD, hacky cough; denies dyspnea, resp infections Cardiovascular: no chest pain and no edema Gastrointestinal: as per Subjective / HPI Physical Exam Constitutional: well nourished somewhat pale; chronically ill Eyes: sclerae not anicteric Respiratory: normal respiratory effort, lungs clear to auscultation Cardiovascular: Rate/Rhythm: regular rate and regular rhythm Gastrointestinal (Abdomen): Inspection/Auscultation: abdomen normal to inspection, normal bowel sounds and + abdominal surgical scar; abdomen not distended Percussion/Palpation: + abdomen tender (mild epigastric tenderness, no rebound, guarding) and abdomen soft Skin: no rashes, warm and dry Neurologic: moves all extremities; no focal motor deficits Psychiatric: A+Ox3, euthymic affect Results & Data Vital Signs (Past 12 Hours) Vital Signs Temp Pulse Pulse Resp BP BP Pulse Ox 10/01/19 06:31 36.3 C L 81 19 86/47 L 93 10/01/19 06:28 36.3 C L 81 20 100/49 L 93 10/01/19 05:58 91 H 24 113/58 L 10/01/19 05:54 36.3 C L 89 22 113/58 L 94 10/01/19 05:43 76 16 98/39 L 97 10/01/19 05:28 77 15 107/37 L 97 10/01/19 05:24 36.7 C 84 16 107/37 L 98 10/01/19 05:13 76 15 109/37 L 97 10/01/19 05:09 36.7 C 76 17 97/35 L 97 10/01/19 04:58 71 17 97/35 L 95 10/01/19 04:53 36.7 C 76 16 103/38 L 94 10/01/19 04:43 74 19 110/49 L 95 10/01/19 04:29 76 20 109/40 L 95 10/01/19 04:28 36.7 C 86 18 104/39 L 97 10/01/19 04:27 36.7 C 91 H 24 104/39 L 98 10/01/19 04:13 77 20 104/39 L 94 10/01/19 03:58 71 16 114/36 L 97 10/01/19 03:43 79 21 115/36 L 95 10/01/19 03:30 36.8 C 76 19 95/41 L 97 10/01/19 03:28 74 16 95/41 L 96 10/01/19 03:13 76 21 104/34 L 96 10/01/19 03:00 36.8 C 76 21 90/33 L 93 10/01/19 02:58 71 13 90/33 L 93 10/01/19 02:45 36.8 C 74 24 95/35 L 92 10/01/19 02:43 74 21 95/35 L 92 10/01/19 02:39 76 22 89/35 L 92 10/01/19 02:31 36.8 C 81 22 144/52 H 93 10/01/19 02:26 93 H 26 H 144/52 H 90 10/01/19 01:40 87 20 117/59 L 97 10/01/19 00:39 36.8 C 81 20 102/51 L 96 10/01/19 00:38 85 19 102/51 L 97 10/01/19 00:35 36.8 C 83 20 102/51 L 96 10/01/19 00:23 71 16 100/33 L 100 10/01/19 00:13 36.7 C 70 17 100/33 L 100 10/01/19 00:08 69 16 116/33 L 100 09/30/19 23:53 72 17 96/35 L 100 09/30/19 23:38 71 17 91/38 L 99 09/30/19 23:23 87 14 115/47 L 97 09/30/19 23:13 36.7 C 75 18 98/36 L 96 09/30/19 23:08 72 18 98/36 L 97 09/30/19 22:53 76 18 95/36 L 97 09/30/19 22:43 36.5 C 69 20 101/39 L 97 09/30/19 22:38 72 22 101/39 L 98 09/30/19 22:28 36.7 C 73 20 141/42 H 96 09/30/19 22:23 93 H 20 141/42 H 97 09/30/19 22:15 73 21 97 09/30/19 22:13 36.7 C 78 21 120/41 L 97 09/30/19 22:08 36.7 C 75 22 120/41 L 98 09/30/19 22:00 36.8 C 80 23 118/53 L 96 09/30/19 21:53 74 21 118/53 L 97 09/30/19 21:45 82 25 H 97 09/30/19 21:38 81 12 124/50 L 98 09/30/19 21:30 80 26 H 95 09/30/19 21:23 82 23 109/48 L 97 09/30/19 21:15 84 25 H 96 09/30/19 21:02 36.7 C 81 26 H 106/43 L 97 09/30/19 21:01 79 25 H 106/43 L 95 09/30/19 21:00 36.8 C 80 24 106/43 L 94 Laboratory Results 10/01/19 10/01/19 10/01/19 Range/Units 07:28 07:28 05:54 WBC (4.8-10.8) K/uL RBC (4.7-6.1) M/uL Hgb 8.3 L (14.0-18.0) g/dL POC Hgb (14.0-18.0) g/dl Hct 24.9 L (42-52) % POC Hct (42-52) % MCV (80-100) fL MCH (25-34) pg MCHC (32-36) g/dL RDW Std Deviation (36.4-46.3) fL RDW Coeff of Ha (11.5-14.5) % Plt Count (130-400) K/uL MPV (7.4-10.4) fL Immature Gran % (Auto) % Neut % (Auto) % Lymph % (Auto) % [place] % (Auto) % Eos % (Auto) % Baso % (Auto) % Immature Gran # (Auto) (0.00-0.02) K/uL Neut # (Auto) (1.4-6.5) K/uL Lymph # (Auto) (1.2-3.4) K/uL [place] # (Auto) (0.11-0.59) K/uL Eos # (Auto) (0-0.5) K/uL Baso # (Auto) (0-0.2) K/uL Polychromasia Basophilic Stippling Anisocytosis PT (9.0-12.0) Seconds INR (0.9-1.1) APTT (21.0-31.0) Seconds PTT Ratio POC Sodium (135-144) mmol/L Sodium (136-145) mmol/L POC Potassium (3.3-5.0) mmol/L Potassium (3.5-5.1) mmol/L POC Chloride (101-112) mmol/L Chloride (98-107) mmol/L Carbon Dioxide (21-32) mmol/L POC Total CO2 (24-31) mEq/l Anion Gap (3-11) POC Anion Gap (16-25) mmol/L POC BUN (7-18) mg/dl BUN (7-18) mg/dl Creatinine (0.6-1.4) mg/dl POC Creatinine (0.6-1.3) mg/dl Est Cr Clr Drug Dosing Est GFR ( Amer) Est GFR (Non-Af Amer) BUN/Creatinine Ratio (10-20) Glucose (70-99) mg/dl POC Glucose 128 H (70-99) mg/dl POC Glucose (other) (70-99) mg/dl Lactate (0.4-2.0) mmol/L Calcium (8.5-10.1) mg/dl POC Ioniz Calcium Katelyn (1.12-1.32) mmol/l Phosphorus (2.5-4.9) mg/dl Magnesium (1.8-2.4) mg/dl Total Bilirubin (0.2-1) mg/dl AST (15-37) U/L ALT (12-78) U/L Alkaline Phosphatase (45-117) U/L Troponin I (0-0.045) ng/ml Total Protein (6.4-8.2) gm/dl Albumin (3.4-5.0) gm/dl Globulin (2.5-4.0) gm/dl Albumin/Globulin Ratio (0.9-2) Procalcitonin 0.08 (0-0.5) ng/ml Nasal Screen MRSA (PCR) (Negative) Blood Type Blood Type Recheck Antibody Screen Crossmatch 10/01/19 10/01/19 10/01/19 Range/Units 01:55 01:55 01:55 WBC 14.23 H (4.8-10.8) K/uL RBC 2.42 L (4.7-6.1) M/uL Hgb 6.6 L* (14.0-18.0) g/dL POC Hgb (14.0-18.0) g/dl Hct 20.0 L* (42-52) % POC Hct (42-52) % MCV 82.6 (80-100) fL MCH 27.3 (25-34) pg MCHC 33.0 (32-36) g/dL RDW Std Deviation 53.6 H (36.4-46.3) fL RDW Coeff of Ha 17.7 H (11.5-14.5) % Plt Count 165 (130-400) K/uL MPV 8.7 (7.4-10.4) fL Immature Gran % (Auto) % Neut % (Auto) % Lymph % (Auto) % [place] % (Auto) % Eos % (Auto) % Baso % (Auto) % Immature Gran # (Auto) (0.00-0.02) K/uL Neut # (Auto) (1.4-6.5) K/uL Lymph # (Auto) (1.2-3.4) K/uL [place] # (Auto) (0.11-0.59) K/uL Eos # (Auto) (0-0.5) K/uL Baso # (Auto) (0-0.2) K/uL Polychromasia Basophilic Stippling Anisocytosis PT 10.7 (9.0-12.0) Seconds INR 1.0 (0.9-1.1) APTT (21.0-31.0) Seconds PTT Ratio POC Sodium (135-144) mmol/L Sodium 140 (136-145) mmol/L POC Potassium (3.3-5.0) mmol/L Potassium 4.2 (3.5-5.1) mmol/L POC Chloride (101-112) mmol/L Chloride 109 H (98-107) mmol/L Carbon Dioxide 29 (21-32) mmol/L POC Total CO2 (24-31) mEq/l Anion Gap 2.0 L (3-11) POC Anion Gap (16-25) mmol/L POC BUN (7-18) mg/dl BUN 76 H (7-18) mg/dl Creatinine 1.38 D (0.6-1.4) mg/dl POC Creatinine (0.6-1.3) mg/dl Est Cr Clr Drug Dosing 58.9 Est GFR ( Amer) 61.3 Est GFR (Non-Af Amer) 52.9 BUN/Creatinine Ratio 55.0 H (10-20) Glucose 112 H (70-99) mg/dl POC Glucose (70-99) mg/dl POC Glucose (other) (70-99) mg/dl Lactate (0.4-2.0) mmol/L Calcium 7.5 L (8.5-10.1) mg/dl POC Ioniz Calcium Katelyn (1.12-1.32) mmol/l Phosphorus 3.2 (2.5-4.9) mg/dl Magnesium 2.4 (1.8-2.4) mg/dl Total Bilirubin (0.2-1) mg/dl AST (15-37) U/L ALT (12-78) U/L Alkaline Phosphatase (45-117) U/L Troponin I (0-0.045) ng/ml Total Protein (6.4-8.2) gm/dl Albumin (3.4-5.0) gm/dl Globulin (2.5-4.0) gm/dl Albumin/Globulin Ratio (0.9-2) Procalcitonin (0-0.5) ng/ml Nasal Screen MRSA (PCR) (Negative) Blood Type Blood Type Recheck Antibody Screen Crossmatch 09/30/19 09/30/19 09/30/19 Range/Units 23:26 21:30 19:07 WBC (4.8-10.8) K/uL RBC (4.7-6.1) M/uL Hgb (14.0-18.0) g/dL POC Hgb (14.0-18.0) g/dl Hct (42-52) % POC Hct (42-52) % MCV (80-100) fL MCH (25-34) pg MCHC (32-36) g/dL RDW Std Deviation (36.4-46.3) fL RDW Coeff of Ha (11.5-14.5) % Plt Count (130-400) K/uL MPV (7.4-10.4) fL Immature Gran % (Auto) % Neut % (Auto) % Lymph % (Auto) % [place] % (Auto) % Eos % (Auto) % Baso % (Auto) % Immature Gran # (Auto) (0.00-0.02) K/uL Neut # (Auto) (1.4-6.5) K/uL Lymph # (Auto) (1.2-3.4) K/uL [place] # (Auto) (0.11-0.59) K/uL Eos # (Auto) (0-0.5) K/uL Baso # (Auto) (0-0.2) K/uL Polychromasia Basophilic Stippling Anisocytosis PT (9.0-12.0) Seconds INR (0.9-1.1) APTT (21.0-31.0) Seconds PTT Ratio POC Sodium (135-144) mmol/L Sodium (136-145) mmol/L POC Potassium (3.3-5.0) mmol/L Potassium (3.5-5.1) mmol/L POC Chloride (101-112) mmol/L Chloride (98-107) mmol/L Carbon Dioxide (21-32) mmol/L POC Total CO2 (24-31) mEq/l Anion Gap (3-11) POC Anion Gap (16-25) mmol/L POC BUN (7-18) mg/dl BUN (7-18) mg/dl Creatinine (0.6-1.4) mg/dl POC Creatinine (0.6-1.3) mg/dl Est Cr Clr Drug Dosing Est GFR ( Amer) Est GFR (Non-Af Amer) BUN/Creatinine Ratio (10-20) Glucose (70-99) mg/dl POC Glucose 155 H (70-99) mg/dl POC Glucose (other) (70-99) mg/dl Lactate 1.9 (0.4-2.0) mmol/L Calcium (8.5-10.1) mg/dl POC Ioniz Calcium [place] (1.12-1.32) mmol/l Phosphorus (2.5-4.9) mg/dl Magnesium (1.8-2.4) mg/dl Total Bilirubin (0.2-1) mg/dl AST (15-37) U/L ALT (12-78) U/L Alkaline Phosphatase (45-117) U/L Troponin I (0-0.045) ng/ml Total Protein (6.4-8.2) gm/dl Albumin (3.4-5.0) gm/dl Globulin (2.5-4.0) gm/dl Albumin/Globulin Ratio (0.9-2) Procalcitonin (0-0.5) ng/ml Nasal Screen MRSA (PCR) Negative (Negative) Blood Type Blood Type Recheck Antibody Screen Crossmatch 09/30/19 09/30/19 09/30/19 Range/Units 18:55 17:35 17:22 WBC (4.8-10.8) K/uL RBC (4.7-6.1) M/uL Hgb (14.0-18.0) g/dL POC Hgb 5.4 L* (14.0-18.0) g/dl Hct (42-52) % POC Hct 16 L* (42-52) % MCV (80-100) fL MCH (25-34) pg MCHC (32-36) g/dL RDW Std Deviation (36.4-46.3) fL RDW Coeff of Ha (11.5-14.5) % Plt Count (130-400) K/uL MPV (7.4-10.4) fL Immature Gran % (Auto) % Neut % (Auto) % Lymph % (Auto) % [place] % (Auto) % Eos % (Auto) % Baso % (Auto) % Immature Gran # (Auto) (0.00-0.02) K/uL Neut # (Auto) (1.4-6.5) K/uL Lymph # (Auto) (1.2-3.4) K/uL [place] # (Auto) (0.11-0.59) K/uL Eos # (Auto) (0-0.5) K/uL Baso # (Auto) (0-0.2) K/uL Polychromasia Basophilic Stippling Anisocytosis PT (9.0-12.0) Seconds INR (0.9-1.1) APTT (21.0-31.0) Seconds PTT Ratio POC Sodium 132 L (135-144) mmol/L Sodium (136-145) mmol/L POC Potassium 4.4 (3.3-5.0) mmol/L Potassium (3.5-5.1) mmol/L POC Chloride 97 L (101-112) mmol/L Chloride (98-107) mmol/L Carbon Dioxide (21-32) mmol/L POC Total CO2 23 L (24-31) mEq/l Anion Gap (3-11) POC Anion Gap 18.0 (16-25) mmol/L POC BUN 105 H* (7-18) mg/dl BUN (7-18) mg/dl Creatinine (0.6-1.4) mg/dl POC Creatinine 1.9 H (0.6-1.3) mg/dl Est Cr Clr Drug Dosing Est GFR ( Amer) Est GFR (Non-Af Amer) BUN/Creatinine Ratio (10-20) Glucose (70-99) mg/dl POC Glucose (70-99) mg/dl POC Glucose (other) 179 H (70-99) mg/dl Lactate (0.4-2.0) mmol/L Calcium (8.5-10.1) mg/dl POC Ioniz Calcium Katelyn 1.06 L (1.12-1.32) mmol/l Phosphorus (2.5-4.9) mg/dl Magnesium (1.8-2.4) mg/dl Total Bilirubin (0.2-1) mg/dl AST (15-37) U/L ALT (12-78) U/L Alkaline Phosphatase (45-117) U/L Troponin I (0-0.045) ng/ml Total Protein (6.4-8.2) gm/dl Albumin (3.4-5.0) gm/dl Globulin (2.5-4.0) gm/dl Albumin/Globulin Ratio (0.9-2) Procalcitonin (0-0.5) ng/ml Nasal Screen MRSA (PCR) (Negative) Blood Type O Positive Blood Type Recheck O Positive Antibody Screen NEGATIVE Crossmatch See Detail 09/30/19 09/30/19 09/30/19 Range/Units 16:46 16:46 16:46 WBC 20.96 H (4.8-10.8) K/uL RBC 2.00 L (4.7-6.1) M/uL Hgb 5.3 L* (14.0-18.0) g/dL POC Hgb (14.0-18.0) g/dl Hct 16.2 L* (42-52) % POC Hct (42-52) % MCV 81.0 (80-100) fL MCH 26.5 (25-34) pg MCHC 32.7 (32-36) g/dL RDW Std Deviation 55.2 H (36.4-46.3) fL RDW Coeff of Ha 19.2 H (11.5-14.5) % Plt Count 207 (130-400) K/uL MPV 9.1 (7.4-10.4) fL Immature Gran % (Auto) 1.5 % Neut % (Auto) 84.6 % Lymph % (Auto) 9.7 % [place] % (Auto) 3.2 % Eos % (Auto) 0.9 % Baso % (Auto) 0.1 % Immature Gran # (Auto) 0.31 H (0.00-0.02) K/uL Neut # (Auto) 17.71 H (1.4-6.5) K/uL Lymph # (Auto) 2.04 (1.2-3.4) K/uL [place] # (Auto) 0.68 H (0.11-0.59) K/uL Eos # (Auto) 0.19 (0-0.5) K/uL Baso # (Auto) 0.03 (0-0.2) K/uL Polychromasia 1+ Basophilic Stippling Occasional Anisocytosis Present PT 37.0 H (9.0-12.0) Seconds INR 4.0 H (0.9-1.1) APTT 35.8 H (21.0-31.0) Seconds PTT Ratio 1.3 POC Sodium (135-144) mmol/L Sodium 134 L (136-145) mmol/L POC Potassium (3.3-5.0) mmol/L Potassium 4.6 (3.5-5.1) mmol/L POC Chloride (101-112) mmol/L Chloride 100 (98-107) mmol/L Carbon Dioxide 25 (21-32) mmol/L POC Total CO2 (24-31) mEq/l Anion Gap 8.0 (3-11) POC Anion Gap (16-25) mmol/L POC BUN (7-18) mg/dl BUN 101 H (7-18) mg/dl Creatinine 1.83 H (0.6-1.4) mg/dl POC Creatinine (0.6-1.3) mg/dl Est Cr Clr Drug Dosing Not Reportable Est GFR ( Amer) 43.6 Est GFR (Non-Af Amer) 37.6 BUN/Creatinine Ratio 55.4 H (10-20) Glucose 189 H (70-99) mg/dl POC Glucose (70-99) mg/dl POC Glucose (other) (70-99) mg/dl Lactate (0.4-2.0) mmol/L Calcium 7.8 L (8.5-10.1) mg/dl POC Ioniz Calcium Katelyn (1.12-1.32) mmol/l Phosphorus (2.5-4.9) mg/dl Magnesium (1.8-2.4) mg/dl Total Bilirubin 0.2 (0.2-1) mg/dl AST 19 (15-37) U/L ALT 18 (12-78) U/L Alkaline Phosphatase 39 L (45-117) U/L Troponin I 0.020 (0-0.045) ng/ml Total Protein 5.2 L (6.4-8.2) gm/dl Albumin 2.8 L (3.4-5.0) gm/dl Globulin 2.4 L (2.5-4.0) gm/dl Albumin/Globulin Ratio 1.2 (0.9-2) Procalcitonin (0-0.5) ng/ml Nasal Screen MRSA (PCR) (Negative) Blood Type Blood Type Recheck Antibody Screen Crossmatch
[2019-10-01] MEDS: UMECLIDINIUM/VILANTEROL 62.5/25MCG 7 PUFFS/INHALER INH SCH (08:34)
[2019-10-01] MEDS ORDERED: FLUTICASONE/VILANTEROL 100/25MCG 14 PUFFS/INHALER INH SCH (09:00)
[2019-10-01] MEDS: FLUTICASONE FUROATE 100MCG 14 PUFFS/INHALER INH SCH (09:25)
--- NOTE | 2019-10-01 10:09 | Critical Care Progress Note ---
Date of Service October 01, 2019 Assessment & Plan (1) Admitted to intensive care unit: Reason Critically Ill: 64-year-old male with presumed upper GI bleed complicated by history of gastric bypass surgery as well as recent intervention for gastric ulcer within the last 8 weeks. NEURO - * CAM ICU: NEGATIVE * History CVA -Patient is at high risk for subsequent CVA as he has a mechanical heart valve from approximately 2008 and a history of a prior CVA CARDIAC/VASCULAR - * h/o aortic mechanical valve repair secondary to rheumatic heart disease: * Previously anticoagulated on Coumadin. * Normalized INR * Will monitor closely as patient certainly is at risk for coagulopathy. RESPIRATORY - * COPD. * Saturating well on room air. * Assess and treat as needed. * Continue home Rx. GI/NUTRITION - * EGD to be performed today * Reviewed endoscopy results * Essentially patient failed outpatient therapy from 8 weeks ago * Patient at high risk for thromboembolic events defining risk factor: Mechanical heart valve with previous stroke * Encouraged early endoscopy to facilitate management decisions * NPO pending need for possible intervention. RENAL/LYTES - * CHARMAINE: * Significant improvement from creatinine of 1.83 * IVF: NSS@100mL/hr - * No concerns at this point. ENDO - * No h/o DM or Known thyroid disease. * BSGs per unit protocol. ISS --> gtt per unit policy. HEME - * Acute blood loss anemia 2/2 UGIB: * Some studies indicate postprocedural anticoagulation should be effectively held 48 hours before initiating treatment * Patient defined as high risk in some studies: Mechanical heart valve with prior stroke * Would initiate heparin earliest at 48-72 hours for bridging therapy given the extracranial bleeding prior to reinitiation of Coumadin * Additional studies indicate patient would likely benefit from lower target INR range of 2-3 to decrease major bleeding events as it appears he is already suffered 2 of these events within 3 months. ID - * No evidence of varices will discontinue antibiotic coverage * LINES/IV ACCESS - * PIVs x2 DVT PROPHYLAXIS - * Will hold on chemoprophylaxis 2/2 UGIB * SCDs Patient is at high risk for major bleeding events: Mechanical heart valve necessitating long-term anticoagulation with history of prior stroke. He has suffered to massive GI bleeds in the preceding 3 months, and has essentially failed outpatient therapy after his previous EGD. 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 (2) Upper gastrointestinal bleed: (3) Hypotension: (4) Elevated INR (international normalized ratio): (5) COPD (chronic obstructive pulmonary disease): (6) Leukocytosis: (7) H/O mechanical aortic valve replacement: (8) Anemia: (9) Hypertension: (10) Abnormal renal function: (11) Anemia due to blood loss: Supervising Physician Co-Signing Physician Notes The following is from the [place] [employer] motor vehicle administration website accessed October 01, 2019: [email or web address] Referrals from professionals particularly law enforcement officials and health care providers should be reported directly to [facility] if there are concerns about medical fitness to drive. Health care management specialist may report to [facility] by simply providing a statement on their letterhead identifying concerns with their patients ability to drive safely. Healthcare providers may also report with an easy-to-use form for Referral to the [facility]. Either the letter or form should be sent to the [facility] at contact information. Notice to [facility] / Contact Information Any notice to [facility] of any referral for possible medical review should include all the following basic information: Full name Date of Current mailing address [place] [employer] license number (first letter of last name followed by 12 digits) Nature of reportable condition If you are a clinician, you can use this form to refer a patient to [facility]'s medical review process: ([id number]) Voluntary Physician / Healthcare Professional Referral to the [facility] Contact Information: [facility] [place] [facility] [address] [place] [address] [place] [address] Fax number: [phone] Email: [email or web address] Subjective Mildly improved since yesterday Physical Exam Physical Exam: General: Alert. nontoxic. Skin: Warm, dry, Head: Atraumatic Ears, nose, mouth and throat: airway patent Cardiovascular: Normal peripheral perfusion Respiratory: no respiratory distress Gastrointestinal: Non distended Musculoskeletal: No deformity Results & Data Vital Signs (Past 12 Hours) Vital Signs Temp Pulse Resp BP Pulse Ox 10/01/19 09:11 71 20 101/43 L 93 10/01/19 09:00 78 23 94 10/01/19 08:31 89 16 101/43 L 95 10/01/19 08:00 36.4 C L 75 18 94 10/01/19 06:31 36.3 C L 81 19 86/47 L 93 10/01/19 06:28 36.3 C L 81 20 100/49 L 93 10/01/19 05:58 91 H 24 113/58 L 10/01/19 05:54 36.3 C L 89 22 113/58 L 94 10/01/19 05:43 76 16 98/39 L 97 10/01/19 05:28 77 15 107/37 L 97 10/01/19 05:24 36.7 C 84 16 107/37 L 98 10/01/19 05:13 76 15 109/37 L 97 10/01/19 05:09 36.7 C 76 17 97/35 L 97 10/01/19 04:58 71 17 97/35 L 95 10/01/19 04:53 36.7 C 76 16 103/38 L 94 10/01/19 04:43 74 19 110/49 L 95 10/01/19 04:29 76 20 109/40 L 95 10/01/19 04:28 36.7 C 86 18 104/39 L 97 10/01/19 04:27 36.7 C 91 H 24 104/39 L 98 10/01/19 04:13 77 20 104/39 L 94 10/01/19 03:58 71 16 114/36 L 97 10/01/19 03:43 79 21 115/36 L 95 10/01/19 03:30 36.8 C 76 19 95/41 L 97 10/01/19 03:28 74 16 95/41 L 96 10/01/19 03:13 76 21 104/34 L 96 10/01/19 03:00 36.8 C 76 21 90/33 L 93 10/01/19 02:58 71 13 90/33 L 93 10/01/19 02:45 36.8 C 74 24 95/35 L 92 10/01/19 02:43 74 21 95/35 L 92 10/01/19 02:39 76 22 89/35 L 92 10/01/19 02:31 36.8 C 81 22 144/52 H 93 10/01/19 02:26 93 H 26 H 144/52 H 90 10/01/19 01:40 87 20 117/59 L 97 10/01/19 00:39 36.8 C 81 20 102/51 L 96 10/01/19 00:38 85 19 102/51 L 97 10/01/19 00:35 36.8 C 83 20 102/51 L 96 10/01/19 00:23 71 16 100/33 L 100 10/01/19 00:13 36.7 C 70 17 100/33 L 100 10/01/19 00:08 69 16 116/33 L 100 09/30/19 23:53 72 17 96/35 L 100 09/30/19 23:38 71 17 91/38 L 99 09/30/19 23:23 87 14 115/47 L 97 09/30/19 23:13 36.7 C 75 18 98/36 L 96 09/30/19 23:08 72 18 98/36 L 97 09/30/19 22:53 76 18 95/36 L 97 09/30/19 22:43 36.5 C 69 20 101/39 L 97 09/30/19 22:38 72 22 101/39 L 98 09/30/19 22:28 36.7 C 73 20 141/42 H 96 09/30/19 22:23 93 H 20 141/42 H 97 09/30/19 22:15 73 21 97 09/30/19 22:13 36.7 C 78 21 120/41 L 97 09/30/19 22:08 36.7 C 75 22 120/41 L 98 Laboratory Results I reviewed the patient's H&H which has remained largely stable at 8 Coding Level of Care Code Critical Care ea addt'l 30 min Diagnoses Admitted to intensive care unit Z78.9 Upper gastrointestinal bleed K92.2 Hypotension I95.9 Hypotension type: unspecified hypotension type Elevated INR (international normalized ratio) R79.1 COPD (chronic obstructive pulmonary disease) J44.9 Leukocytosis D72.829 Leukocytosis type: unspecified H/O mechanical aortic valve replacement Z95.2 Anemia D64.9 Hypertension I10 Abnormal renal function N28.9 Anemia due to blood loss D50.0 Time Spent (min) 95 Comment I have personally spent 95 minutes of critical care time in the direct management of this patient. This is a life/limb threatening event. This includes time spent evaluating patient, direct bedside care, chart review, placing orders, interpretation of diagnostic studies, discussion with consultan ts, patient, and/or family members regarding treatment decisions, as well as other required patient management activities. This time is exclusive of all separately billable procedures, and teaching time and separate from and in addition to any other critical care service time. (1) Leukocytosis Leukocytosis type: unspecified Qualified Code(s): D72.829 - Elevated white blood cell count, unspecified (2) Hypotension Hypotension type: unspecified hypotension type Qualified Code(s): I95.9 - Hypotension, unspecified
--- NOTE | 2019-10-01 10:49 | Electrocardiogram Report ---
Test Reason : Blood Pressure : / mmHG Vent. Rate : 087 BPM Atrial Rate : 087 BPM P-R Int : 184 ms QRS Dur : 138 ms QT Int : 394 ms P-R-T Axes : 034 -39 077 degrees QTc Int : 474 ms Poor data quality, interpretation may be adversely affected Normal sinus rhythm Left axis deviation Non-specific intra-ventricular conduction block with repolarization abnormality Lateral leads Abnormal ECG No previous ECGs available Confirmed by Jason Lewis ([id number]) on 10/01/2019 10:48:42 AM Referred By: REFERRED SELF Confirmed By:Jason Lewis
[2019-10-01 11:57] LABS: Hematocrit (blood only) 25.8 % (42-52)
[2019-10-01] MEDS ORDERED: ONDANSETRON INJ 2 MG/ML 2 ML VIAL ONE (12:43)
[2019-10-01] MEDS ORDERED: DEXAMETHASONE SOD INJ 4 MG/ML VIAL ONE (12:43)
[2019-10-01] MEDS ORDERED: GLYCOPYRROLATE 0.2 MG/ML VIAL ONE (12:43)
[2019-10-01] MEDS ORDERED: SUCCINYLCHOLINE CHLORIDE 20 MG/ML 10 ML VIAL ONE (12:43)
[2019-10-01] MEDS ORDERED: PROPOFOL IV EMULSION 10 MG/ML 20 ML VIAL IV ONE (12:43)
[2019-10-01] MEDS ORDERED: PHENYLEPHRINE HCL 10 MG/ML VIAL ONE (12:43)
[2019-10-01] MEDS ORDERED: NEOSTIGMINE METHYLSULFATE 5 MG/5 ML SYR ONE (12:43)
[2019-10-01] MEDS ORDERED: LIDOCAINE HCL 2% 2 ML VIAL/AMP(20MG/ML) INFIL ONE (12:43)
[2019-10-01] MEDS ORDERED: ePHEDrine sulfate 50 MG/ML AMP ONE (12:43)
[2019-10-01] MEDS ORDERED: fentaNYL citrate 100 MCG/2 ML VIAL ONE (12:44)
--- NOTE | 2019-10-01 13:39 | GI REPORT ---
Patient Name: Sky Gallegos Procedure Date: 10/01/2019 1:15 PM Date of : 1955 Admit Type: Inpatient Age: 64 Gender: Male Attending MD: Xuan Gaspar DO Procedure: Upper GI endoscopy Providers: Xuan Gaspar DO Referring MD: LISBET SCALES Indications: Acute post hemorrhagic anemia, Melena Medicines: Propofol per Anesthesia Complications: No immediate complications. Estimated blood loss: None. Estimated Blood Loss: Estimated blood loss: none. Procedure: Pre-Anesthesia Assessment: - Prior to the procedure, a History and Physical was performed, and patient medications, allergies and sensitivities were reviewed. The patient's tolerance of previous anesthesia was reviewed. - The risks and benefits of the procedure and the sedation options and risks were discussed with the patient. All questions were answered and informed consent was obtained. - Patient identification and proposed procedure were verified prior to the procedure by the physician and the nurse. The procedure was verified in the pre-procedure area in the procedure room. - Mental Status Examination: alert and oriented. Airway Examination: normal oropharyngeal airway and neck mobility. Respiratory Examination: clear to auscultation. CV Examination: normal. Abdominal Examination: bowel sounds present, abdomen soft and non-tender, no masses or organomegaly noted. - ASA Grade Assessment: III - A patient with severe systemic disease. After obtaining informed consent, the endoscope was passed under direct vision. Throughout the procedure, the patient's blood pressure, pulse, and oxygen saturations were monitored continuously. The Endoscope was introduced through the mouth, and advanced to the jejunum. The upper GI endoscopy was accomplished without difficulty. The patient tolerated the procedure well. Findings: The esophagus was normal. 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 The gastrojejunal anastomosis was characterized by healthy appearing mucosa. This was traversed. The ivawk-ln-ytpxwlx limb was characterized by an intact staple line. The jejunojejunal anastomosis was characterized by ulceration. For hemostasis, two hemostatic clips were successfully placed (MR conditional). There was no bleeding during, or at the end, of the procedure. The examined jejunum was normal. Impression: - Normal esophagus. - No fresh or altered blood - Lorie-en-Y gastrojejunostomy with anastomotic uklcer with a non-bleeding visible vessel. Clips (MR conditional) were placed. - Remainder of examined jejunum normal - No specimens collected. Recommendation: - sips of clears and ice chips today continue PPI gtt for another 24 hours transition to oral PPI BID following PPI gtt No NSAIDs Smoking cessation Needs f/u with his PCP follwong discharge. Should have a repeat EGD at home facility in 8 weeks - [facility]. Xuan Gaspar D.O. Xuan Gaspar, DO 10/01/2019 1:39:21 PM This report has been signed electronically. Note Initiated On: 10/01/2019 1:15 PM Number of Addenda: 0 I attest to the content of the Intraoperative Record and orders documented therein, exceptions below {[id number]}
--- NOTE | 2019-10-01 17:44 | Anesthesiology Consultation ---
Date of Service October 01, 2019 Assessment & Plan Chart Review Chart Review: Acceptable Risk for Surgery Consults Requested none History Surgery Operation Date: 10/01/19 08:10 Proposed Procedures p Esophagogastroduodenoscopy - Xuan Gaspar Height/Weight Height: 5 ft 5 in Weight: 105 kg Allergies Allergy/AdvReac Type Severity Reaction Status Date / Time "Cough medicine" AdvReac Unknown "Jittery" Uncoded 09/30/19 17:28 / "couldn't sleep" Medications Home Medications Medication Instructions Recorded Confirmed Last Taken amlodipine 2.5 mg PO DAILY 09/30/19 09/30/19 09/28/19 budesonide-formoterol [Symbicort] 2 puff INHALATION BID PRN 09/30/19 09/30/19 Unknown cyanocobalamin (vitamin B-12) 2,500 mcg SUBLINGUAL DAILY 09/30/19 09/30/19 Unknown [Vitamin B-12] diphenhydramine-acetaminophen 1 tab PO HS PRN 09/30/19 09/30/19 Unknown [Tylenol PM Extra Strength] fioenyywyya-yuyifdsep-gchltnul 1 inh INHALATION DAILY 09/30/19 09/30/19 09/30/19 [Trelegy Ellipta] hydrochlorothiazide 25 mg PO DAILY 09/30/19 09/30/19 09/30/19 iron 28 mg PO DAILY 09/30/19 09/30/19 Unknown lisinopril 40 mg PO DAILY 09/30/19 09/30/19 09/30/19 naproxen sodium 220 mg PO Q12H PRN 09/30/19 09/30/19 Unknown warfarin 5 mg PO DAILY 09/30/19 09/30/19 09/28/19 Active Medications Generic Name Dose Route Start Last Admin Trade Name Freq PRN Reason Stop Dose Admin Fluticasone Furoate 1 puffs 10/01/19 09:00 10/01/19 09:25 Arnuity Ellipta 100mcg INH 10/31/19 08:59 1 puffs DAILY JUHI Administration Protocol Pantoprazole Sodium 40 mg/ 100 mls @ 20 mls/hr 09/30/19 17:45 10/01/19 15:08 Dextrose IV 10/30/19 17:44 20 mls/hr Q5H JUHI Administration Ceftriaxone Sodium 2,000 mg/ 70 mls @ 100 mls/hr 09/30/19 22:00 09/30/19 22:59 Dextrose IV 10/10/19 21:59 Infused Q24H JUHI Infusion Protocol Umeclidinium/Vilanterol 1 puffs 10/01/19 09:00 10/01/19 08:34 Anoro Ellipta 62.5/25 Mcg Inh INH 10/31/19 08:59 1 puffs DAILY JUHI Administration Protocol NPO Date Last Intake of Fluids: 10/01/19 Time Last Intake of Fluids: 10:30 Date Last Intake of Solids: 10/01/19 Time Last Intake of Solids: 10:30 Past Medical History Medical History COPD (chronic obstructive pulmonary disease) CVA (cerebral vascular accident) Hypertension Past Family History Family History Mother Lung cancer Father Emphysema lung Past Surgical History Surgical History H/O gastric bypass H/O mechanical aortic valve replacement Social History Smoking Status: Former smoker tobacco type: smokeless tobacco Do You Dip or Chew Tobacco: Yes Hx Alcohol Use: Yes Alcohol type: beer and hard liquor alcohol intake frequency: a few times a month Hx Substance Use: No Physical Exam Vital Signs Last Vital Signs Temp 36.9 C 10/01/19 16:00 Pulse 69 10/01/19 17:00 Resp 19 10/01/19 17:00 BP 133/53 L 10/01/19 16:13 Pulse Ox 97 10/01/19 17:00 Testing Laboratory Results 10/01/19 11:42 10/01/19 01:55 PT 10.7 Seconds (9.0-12.0) 10/01/19 01:55 INR 1.0 (0.9-1.1) 10/01/19 01:55 APTT 35.8 Seconds (21.0-31.0) H 09/30/19 16:46 Blood Type O Positive 09/30/19 17:22 Antibody Screen NEGATIVE 09/30/19 17:22 10/01/19 05:54 POC Glucose 128 H
--- NOTE | 2019-10-01 17:46 | Hospitalist Progress Note ---
Date of Service October 01, 2019 Assessment & Plan (1) Upper gastrointestinal bleed: (2) Anemia: (3) Supratherapeutic INR: (4) H/O mechanical aortic valve replacement: Present on admission with lightheadedness, dizziness, black stools. Hgb 5.3 and INR 4 on admission ED discussed case with Dr. Fish who recommends vitamin K and Kcentra Received [address] abd/pelvis done at [facility] showed no acute finding S/P EGD done showed no active bleeding GI recommended to continue IV PPI for another 24 hr, then transition to oral PPI BID Will need to repeat EGD in 8 weeks and avoid NSAID Tolerated clear liquid diet Recent Hgb 8 Continue monitor H/H (5) Leukocytosis: Possible due to reactive Afebrile WBC trending down Blood cx negative Continue monitor (6) Abnormal renal function: Creatinine 1.8, unknown baseline Hbg improved to 1.3 Continue to monitor BMP (7) Hypertension: BP stable Continue to hold lisinopril and HCTZ (8) COPD (chronic obstructive pulmonary disease): Continue neb treatment Stable (9) DVT prophylaxis: SCDs due to acute GI bleeding CODE STATUS FULL CODE Subjective Pt was seen and examined Lying in bed with no distress Tolerated clear liquid diet Pt would like his diet to advance Denies any chest pain, palpitation and SOB Physical Exam Physical Exam: General- No acute distress Head- atraumatic Eyes- PERRL, EOMI, ENT- oropharynx clear Neck- supple, no JVD Lungs- clear to auscultation Heart- regular rhythm; no murmur Abdomen- normal bowel sounds, soft, nontender Extremities- no calf tenderness Neuro- alert, oriented x 3; PERRL, EOMI; no facial palsy; no dysarthria Skin- warm & dry Results & Data Vital Signs (Past 12 Hours) Vital Signs Temp Pulse Pulse Resp BP BP Pulse Ox 10/01/19 17:00 69 19 97 10/01/19 16:13 65 22 133/53 L 98 10/01/19 16:00 36.9 C 65 23 100 10/01/19 15:13 72 17 106/55 L 98 10/01/19 15:00 78 21 95 10/01/19 14:28 68 20 110/48 L 95 10/01/19 14:25 36.9 C 74 24 110/48 L 95 10/01/19 14:24 71 25 H 115/49 L 94 10/01/19 14:18 71 20 115/49 L 95 10/01/19 14:13 76 19 119/57 L 97 10/01/19 14:11 73 18 115/59 L 98 10/01/19 14:08 36.8 C 75 76 17 119/60 119/57 L 99 10/01/19 14:06 76 19 115/56 L 98 10/01/19 14:03 76 19 120/55 L 98 10/01/19 14:01 80 19 118/60 97 10/01/19 14:00 78 19 97 10/01/19 13:58 81 79 21 119/60 120/60 96 10/01/19 13:55 76 18 120/60 96 10/01/19 13:53 80 22 119/58 L 96 10/01/19 13:51 80 17 116/59 L 97 10/01/19 13:48 37.3 C 79 16 125/55 L 98 10/01/19 13:46 78 20 125/55 L 97 10/01/19 13:00 76 21 94 10/01/19 12:32 82 21 114/57 L 94 10/01/19 12:18 36.8 C 80 18 103/51 L 95 10/01/19 12:00 73 20 94 10/01/19 11:32 77 14 103/51 L 95 10/01/19 11:00 78 21 95 10/01/19 10:31 85 26 H 128/54 L 92 10/01/19 10:16 105 H 27 H 10/01/19 09:31 85 24 114/44 L 10/01/19 09:11 71 20 101/43 L 93 10/01/19 09:00 78 23 94 10/01/19 08:31 89 16 101/43 L 95 10/01/19 08:00 36.4 C L 75 18 94 10/01/19 06:31 36.3 C L 81 19 86/47 L 93 10/01/19 06:28 36.3 C L 81 20 100/49 L 93 10/01/19 05:58 91 H 24 113/58 L 10/01/19 05:54 36.3 C L 89 22 113/58 L 94 (1) Leukocytosis Leukocytosis type: unspecified Qualified Code(s): D72.829 - Elevated white blood cell count, unspecified
[2019-10-01 20:40] LABS: Hematocrit (blood only) 27.4 % (42-52); Hemoglobin 8.7 g/dL (14.0-18.0)
[2019-10-01] MEDS: cefTRIAXone SODIUM 2,000 MG in DEXTROSE 5% 50 ML IV SCH (22:07)
[2019-10-02 00:25] LABS: Hematocrit (blood only) 26.6 % (42-52); Hemoglobin 8.6 g/dL (14.0-18.0)
[2019-10-02] MEDS: PANTOprazole 40 MG in DEXTROSE 5% 100 ML IV SCH ×5 (01:29→21:11)
[2019-10-02 05:03] LABS: Basophils # (auto) 0.02 K/uL (0-0.2); Basophils % (auto) 0.2 %; Eosinophils # (auto) 0.39 K/uL (0-0.5); Eosinophils % (auto) 4.1 %; Hematocrit (blood only) 26.6 % (42-52); Hemoglobin 8.6 g/dL (14.0-18.0); Immature Granulocytes # (auto) 0.13 K/uL (0.00-0.02); Immature Granulocytes % (auto) 1.4 %; Lymphocytes # (auto) 1.46 K/uL (1.2-3.4); Lymphocytes % (auto) 15.4 %; Mean Corpuscular Hemoglobin 27.9 pg (25-34); Mean Corpuscular Hgb Conc 32.3 g/dL (32-36); Mean Corpuscular Volume 86.4 fL (80-100); Monocytes % (auto) 5.3 %; Neutrophils # (auto) 7.01 K/uL (1.4-6.5); Neutrophils % (auto) 73.6 %; Platelet Count 151 K/uL (130-400); RDW Coefficient of Variation 17.1 % (11.5-14.5); RDW Standard Deviation 52.5 fL (36.4-46.3); Red Blood Count 3.08 M/uL (4.7-6.1); White Blood Count 9.51 K/uL (4.8-10.8)
[2019-10-02 05:40] LABS: BUN Creatinine Ratio 19.7 (10-20); Calcium 8.7 mg/dl (8.5-10.1); Creatinine Clr Calc Pharmacy 75.1 ml/min; Est GFR (African American) 82.5; Est GFR (Non-African American) 71.1; Magnesium 2.3 mg/dl (1.8-2.4); Potassium 4.2 mmol/L (3.5-5.1)
--- NOTE | 2019-10-02 07:11 | Anesthesiology Progress Note ---
Date of Service October 02, 2019 Anesthesia Post Procedure Vital Signs Vital Signs: Temp Pulse Pulse Resp BP BP Pulse Ox 10/02/19 06:30 69 15 97 10/02/19 06:15 60 14 98 10/02/19 06:14 61 15 105/47 L 98 10/02/19 06:00 54 L 15 98 10/02/19 05:45 59 L 18 98 10/02/19 05:30 59 L 16 98 10/02/19 05:15 59 L 16 98 10/02/19 05:14 60 16 116/51 L 98 10/02/19 05:00 57 L 16 97 10/02/19 04:14 60 16 106/48 L 97 10/02/19 04:00 60 17 97 10/02/19 03:14 67 17 122/54 L 97 10/02/19 03:00 84 13 96 10/02/19 02:14 76 17 124/72 95 10/02/19 02:12 75 16 110/51 L 95 10/02/19 02:00 64 19 96 10/02/19 01:14 64 20 110/51 L 97 10/02/19 01:00 82 30 H 94 10/02/19 00:14 79 21 141/60 H 10/02/19 00:00 74 21 96 10/01/19 23:14 68 22 130/60 96 10/01/19 23:00 66 23 96 10/01/19 22:14 72 24 148/59 H 98 10/01/19 22:00 71 22 98 10/01/19 21:14 76 23 143/53 H 97 10/01/19 21:00 74 20 98 10/01/19 20:14 67 27 H 137/54 L 99 10/01/19 20:00 37 C 73 22 10/01/19 19:15 70 21 94 10/01/19 19:14 73 17 169/70 H 97 10/01/19 19:00 69 19 95 10/01/19 18:13 70 17 141/60 H 95 10/01/19 18:00 73 24 98 10/01/19 17:13 66 19 122/61 99 10/01/19 17:00 69 19 97 10/01/19 16:13 65 22 133/53 L 98 10/01/19 16:00 36.9 C 65 23 100 10/01/19 15:13 72 17 106/55 L 98 10/01/19 15:00 78 21 95 10/01/19 14:28 68 20 110/48 L 95 10/01/19 14:25 36.9 C 74 24 110/48 L 95 10/01/19 14:24 71 25 H 115/49 L 94 10/01/19 14:18 71 20 115/49 L 95 10/01/19 14:13 76 19 119/57 L 97 10/01/19 14:11 73 18 115/59 L 98 10/01/19 14:08 36.8 C 75 76 17 119/60 119/57 L 99 10/01/19 14:06 76 19 115/56 L 98 10/01/19 14:03 76 19 120/55 L 98 10/01/19 14:01 80 19 118/60 97 10/01/19 14:00 78 19 97 10/01/19 13:58 81 79 21 119/60 120/60 96 10/01/19 13:55 76 18 120/60 96 10/01/19 13:53 80 22 119/58 L 96 10/01/19 13:51 80 17 116/59 L 97 10/01/19 13:48 37.3 C 79 16 125/55 L 98 10/01/19 13:46 78 20 125/55 L 97 10/01/19 13:00 76 21 94 10/01/19 12:32 82 21 114/57 L 94 10/01/19 12:18 36.8 C 80 18 103/51 L 95 10/01/19 12:00 73 20 94 10/01/19 11:32 77 14 103/51 L 95 10/01/19 11:00 78 21 95 10/01/19 10:31 85 26 H 128/54 L 92 10/01/19 10:16 105 H 27 H 10/01/19 09:31 85 24 114/44 L 10/01/19 09:11 71 20 101/43 L 93 10/01/19 09:00 78 23 94 10/01/19 08:31 89 16 101/43 L 95 10/01/19 08:00 36.4 C L 75 18 94 Notes Mental Status: alert / awake / arousable and participated in evaluation Nausea / Vomiting: adequately controlled Pain: adequately controlled Airway Patency, RR, SpO2: stable & adequate BP & HR: stable & adequate Hydration State: stable & adequate Anesthetic Complications: Pt Satisfied with anesthetic care
[2019-10-02] MEDS: FLUTICASONE FUROATE 100MCG 14 PUFFS/INHALER INH SCH (08:14)
[2019-10-02] MEDS: UMECLIDINIUM/VILANTEROL 62.5/25MCG 7 PUFFS/INHALER INH SCH (08:15)
--- NOTE | 2019-10-02 09:53 | Critical Care Progress Note ---
Date of Service October 02, 2019 Assessment & Plan (1) Admitted to intensive care unit: Reason Critically Ill: 64-year-old male with presumed upper GI bleed complicated by history of gastric bypass surgery as well as recent intervention for gastric ulcer within the last 8 weeks. NEURO - * CAM ICU: NEGATIVE CARDIAC/VASCULAR - * h/o aortic mechanical valve repair secondary to rheumatic heart disease: * Previously anticoagulated on Coumadin. RESPIRATORY - * COPD * History of tobacco abuse * Tobacco abuse certainly contributes to poor wound healing * Smoking cessation education GI/NUTRITION - * Anastomotic ulcer * Continue PPI infusion until tomorrow at 9 and then convert to IV Protonix twice daily * Failed outpatient therapy from previous repair * Must stop NSAID use * At risk for recurrent bleeding * Full liquid diet RENAL/LYTES - * CHARMAINE: Resolved. * IVF: Discontinued today - * Discontinue [facility] ENDO - * No h/o DM or Known thyroid disease. * BSGs per unit protocol. ISS --> gtt per unit policy. HEME - * Will require systemic long-term anticoagulation * Discussed with Dr. Fish * Waiting 648 hours after procedure to reinitiate anticoagulation order placed for heparin no bolus to start at 1400 10/03/19 * Would not initiate Coumadin until October 04 at the earliest * Additional studies indicate patient would likely benefit from lower target INR range of 2-3 to decrease major bleeding events as it appears he is already suffered 2 of these events within 3 months. ID - * Monitor fever curve LINES/IV ACCESS - * PIVs x2 DVT PROPHYLAXIS - * Will hold on chemoprophylaxis 2/2 UGIB * SCDs Patient was discussed on multidisciplinary rounds. His H&H has remained stable. He is stable for downgrade out of the ICU. (2) Upper gastrointestinal bleed: (3) Hypotension: (4) Elevated INR (international normalized ratio): (5) COPD (chronic obstructive pulmonary disease): (6) Leukocytosis: (7) H/O mechanical aortic valve replacement: (8) Anemia: (9) Hypertension: (10) Abnormal renal function: (11) Anemia due to blood loss: Supervising Physician Co-Signing Physician Notes I have completed [place] DMV form DC-220: Voluntary physician referral, I have emailed it via the [employer] email to the address listed: Email: [email or web address] The windows server engineer returned the following message:The email message, 'Form DC-220 report', sent from 'Frank Schultz ([email or web address]) ' to '[email or web address]' on '2019-10-02 17:40:37' was scanned by your organization's Email DLP policy. The following action was taken: 'Permitted'. Subjective Decreasing cynthia stool output Physical Exam Physical Exam: General: Alert. nontoxic. Skin: Warm, dry, Head: Atraumatic Ears, nose, mouth and throat: airway patent Cardiovascular: Normal peripheral perfusion Respiratory: no respiratory distress Gastrointestinal: Non distended Musculoskeletal: No deformity Results & Data Vital Signs (Past 12 Hours) Vital Signs Temp Pulse Resp BP Pulse Ox 10/02/19 08:14 67 21 137/57 L 95 10/02/19 08:00 36.4 C L 66 19 94 10/02/19 07:14 67 17 129/67 99 10/02/19 07:00 70 16 97 10/02/19 06:30 69 15 97 10/02/19 06:15 60 14 98 10/02/19 06:14 61 15 105/47 L 98 10/02/19 06:00 54 L 15 98 10/02/19 05:45 59 L 18 98 10/02/19 05:30 59 L 16 98 10/02/19 05:15 59 L 16 98 10/02/19 05:14 60 16 116/51 L 98 10/02/19 05:00 57 L 16 97 10/02/19 04:14 60 16 106/48 L 97 10/02/19 04:00 60 17 97 10/02/19 03:14 67 17 122/54 L 97 10/02/19 03:00 84 13 96 10/02/19 02:14 76 17 124/72 95 10/02/19 02:12 75 16 110/51 L 95 10/02/19 02:00 64 19 96 10/02/19 01:14 64 20 110/51 L 97 10/02/19 01:00 82 30 H 94 10/02/19 00:14 79 21 141/60 H 10/02/19 00:00 74 21 96 10/01/19 23:14 68 22 130/60 96 10/01/19 23:00 66 23 96 10/01/19 22:14 72 24 148/59 H 98 10/01/19 22:00 71 22 98 Laboratory Results 10/02/19 10/02/19 10/02/19 Range/Units 14:07 04:48 04:48 WBC (4.8-10.8) K/uL RBC (4.7-6.1) M/uL Hgb 9.1 L (14.0-18.0) g/dL Hct 28.5 L (42-52) % MCV (80-100) fL MCH (25-34) pg MCHC (32-36) g/dL RDW Std Deviation (36.4-46.3) fL RDW Coeff of Ha (11.5-14.5) % Plt Count (130-400) K/uL MPV (7.4-10.4) fL Immature Gran % (Auto) % Neut % (Auto) % Lymph % (Auto) % [place] % (Auto) % Eos % (Auto) % Baso % (Auto) % Immature Gran # (Auto) (0.00-0.02) K/uL Neut # (Auto) (1.4-6.5) K/uL Lymph # (Auto) (1.2-3.4) K/uL [place] # (Auto) (0.11-0.59) K/uL Eos # (Auto) (0-0.5) K/uL Baso # (Auto) (0-0.2) K/uL PT 10.0 (9.0-12.0) Seconds INR 1.0 (0.9-1.1) Sodium 142 (136-145) mmol/L Potassium 4.2 (3.5-5.1) mmol/L Chloride 107 (98-107) mmol/L Carbon Dioxide 35 H (21-32) mmol/L Anion Gap 0 L (3-11) BUN 21 H D (7-18) mg/dl Creatinine 1.08 (0.6-1.4) mg/dl Est Cr Clr Drug Dosing 75.1 ml/min Est GFR ( Amer) 82.5 Est GFR (Non-Af Amer) 71.1 BUN/Creatinine Ratio 19.7 (10-20) Glucose 91 (70-99) mg/dl Calcium 8.7 D (8.5-10.1) mg/dl Phosphorus 3.0 (2.5-4.9) mg/dl Magnesium 2.3 (1.8-2.4) mg/dl 10/02/19 10/02/19 Range/Units 04:48 00:16 WBC 9.51 (4.8-10.8) K/uL RBC 3.08 L (4.7-6.1) M/uL Hgb 8.6 L 8.6 L (14.0-18.0) g/dL Hct 26.6 L 26.6 L (42-52) % MCV 86.4 (80-100) fL MCH 27.9 (25-34) pg MCHC 32.3 (32-36) g/dL RDW Std Deviation 52.5 H (36.4-46.3) fL RDW Coeff of Ha 17.1 H (11.5-14.5) % Plt Count 151 (130-400) K/uL MPV 9.0 (7.4-10.4) fL Immature Gran % (Auto) 1.4 % Neut % (Auto) 73.6 % Lymph % (Auto) 15.4 % [place] % (Auto) 5.3 % Eos % (Auto) 4.1 % Baso % (Auto) 0.2 % Immature Gran # (Auto) 0.13 H (0.00-0.02) K/uL Neut # (Auto) 7.01 H (1.4-6.5) K/uL Lymph # (Auto) 1.46 (1.2-3.4) K/uL [place] # (Auto) 0.50 (0.11-0.59) K/uL Eos # (Auto) 0.39 (0-0.5) K/uL Baso # (Auto) 0.02 (0-0.2) K/uL PT (9.0-12.0) Seconds INR (0.9-1.1) Sodium (136-145) mmol/L Potassium (3.5-5.1) mmol/L Chloride (98-107) mmol/L Carbon Dioxide (21-32) mmol/L Anion Gap (3-11) BUN (7-18) mg/dl Creatinine (0.6-1.4) mg/dl Est Cr Clr Drug Dosing ml/min Est GFR ( Amer) Est GFR (Non-Af Amer) BUN/Creatinine Ratio (10-20) Glucose (70-99) mg/dl Calcium (8.5-10.1) mg/dl Phosphorus (2.5-4.9) mg/dl Magnesium (1.8-2.4) mg/dl Medications Administered Fluticasone Furoate (Arnuity Ellipta 100mcg) 1 puffs INH DAILY JUHI; Protocol Stop: 10/31/19 08:59 Last Admin: 10/02/19 08:14 Dose: 1 puffs Documented by: [id number] Admin: 10/01/19 09:25 Dose: 1 puffs Documented by: [id number] Pantoprazole Sodium 40 mg/ (Dextrose) 100 mls @ 20 mls/hr IV Q5H JUHI Stop: 10/03/19 09:00 Last Admin: 10/02/19 15:55 Dose: 20 mls/hr Documented by: [id number] Infusion: 10/02/19 15:45 Dose: 20 mls/hr Documented by: [id number] Admin: 10/02/19 10:45 Dose: 20 mls/hr Documented by: [id number] Infusion: 10/02/19 10:45 Dose: 20 mls/hr Documented by: [id number] Admin: 10/02/19 06:25 Dose: 20 mls/hr Documented by: [id number] Infusion: 10/02/19 06:25 Dose: 20 mls/hr Documented by: [id number] Admin: 10/02/19 01:29 Dose: 20 mls/hr Documented by: [id number] Infusion: 10/02/19 01:24 Dose: 20 mls/hr Documented by: [id number] Admin: 10/01/19 20:24 Dose: 20 mls/hr Documented by: [id number] Infusion: 10/01/19 20:08 Dose: 20 mls/hr Documented by: [id number] Admin: 10/01/19 15:08 Dose: 20 mls/hr Documented by: [id number] Infusion: 10/01/19 15:08 Dose: 0 mls/hr Documented by: [id number] Infusion: 10/01/19 13:55 Dose: 20 mls/hr Documented by: [id number] Infusion: 10/01/19 13:14 Dose: 0 mls/hr Documented by: [id number] Admin: 10/01/19 09:25 Dose: 20 mls/hr Documented by: [id number] Infusion: 10/01/19 09:25 Dose: 20 mls/hr Documented by: [id number] Admin: 10/01/19 04:37 Dose: 20 mls/hr Documented by: [id number] Infusion: 10/01/19 04:37 Dose: 20 mls/hr Documented by: [id number] Admin: 10/01/19 00:31 Dose: 20 mls/hr Documented by: [id number] Infusion: 10/01/19 00:31 Dose: 20 mls/hr Documented by: [id number] Admin: 09/30/19 19:43 Dose: 20 mls/hr Documented by: [id number] Umeclidinium/Vilanterol (Anoro Ellipta 62.5/25 Mcg Inh) 1 puffs INH DAILY JUHI; Protocol Stop: 10/31/19 08:59 Last Admin: 10/02/19 08:15 Dose: 1 puffs Documented by: [id number] Admin: 10/01/19 08:34 Dose: 1 puffs Documented by: [id number] Discontinued Medications Epinephrine HCl (Epinephrine) Confirm Administered Dose 1 mg IV .STK-MED ONE Stop: 10/01/19 13:43 Last Admin: 10/01/19 13:56 Dose: Not Given Documented by: [id number] Heparin Sodium/Dextrose () 1 ea IV Q15M JUHI; Protocol Stop: 10/02/19 17:01 Last Admin: 10/02/19 19:15 Dose: Not Given Documented by: [id number] Admin: 10/02/19 19:15 Dose: Not Given Documented by: [id number] Admin: 10/02/19 19:15 Dose: Not Given Documented by: [id number] Admin: 10/02/19 17:28 Dose: Not Given Documented by: [id number] Admin: 10/02/19 16:02 Dose: Not Given Documented by: [id number] Sodium Chloride (Nss 1000ml) 1,000 mls @ 100 mls/hr IV .Q10H JUHI Stop: 10/01/19 03:29 Last Infusion: 10/01/19 03:55 Dose: 0 mls/hr Documented by: [id number] Admin: 09/30/19 17:44 Dose: 100 mls/hr Documented by: [id number] Pantoprazole Sodium 80 mg/ (Dextrose) 120 mls @ 480 mls/hr IV NOW ONE Stop: 09/30/19 17:44 Last Infusion: 09/30/19 18:23 Dose: 0 mls/hr Documented by: [id number] Admin: 09/30/19 17:50 Dose: 480 mls/hr Documented by: [id number] Famotidine (Pepcid 20mg Iv Push) 20 mg in 5 mls @ 2.5 mls/min IV NOW STA Stop: 09/30/19 17:37 Last Admin: 09/30/19 17:57 Dose: 2.5 mls/min Documented by: [id number] Sodium Chloride (Nss 1000ml) 500 mls @ 999 mls/hr IV .Q31M ONE Stop: 09/30/19 18:58 Last Infusion: 09/30/19 19:17 Dose: 0 mls/hr Documented by: [id number] Admin: 09/30/19 18:42 Dose: 999 mls/hr Documented by: [id number] Piperacillin Sod/Tazobactam Sod (Zosyn) 4.5 gm in 120 mls @ 240 mls/hr IV NOW ONE Stop: 09/30/19 18:57 Last Admin: 09/30/19 21:28 Dose: Not Given Documented by: [id number] Phytonadione 10 mg/ Sodium (Chloride) 51 mls @ 101 mls/hr IV TODAY@1900 JUHI Stop: 09/30/19 19:31 Last Infusion: 09/30/19 19:53 Dose: 0 mls/hr Documented by: [id number] Admin: 09/30/19 18:55 Dose: 101 mls/hr Documented by: [id number] Prothrombin Complex Concent ( (Human) 3,500 units/ Syringe) 140 mls @ 10 mls/min IV NOW ONE; Protocol Stop: 09/30/19 18:58 Last Admin: 09/30/19 19:30 Dose: 10 mls/min Documented by: [id number] Ceftriaxone Sodium 2,000 mg/ (Dextrose) 70 mls @ 100 mls/hr IV Q24H [facility]; Protocol Stop: 10/10/19 21:59 Last Infusion: 10/01/19 22:49 Dose: 0 mls/hr Documented by: [id number] Admin: 10/01/19 22:07 Dose: 100 mls/hr Documented by: [id number] Infusion: 09/30/19 22:59 Dose: 0 mls/hr Documented by: [id number] Admin: 09/30/19 22:17 Dose: 100 mls/hr Documented by: [id number] Coding Level of Care Code 82094 Subseq [facility] 3 Diagnoses Admitted to intensive care unit Z78.9 Upper gastrointestinal bleed K92.2 Hypotension I95.9 Hypotension type: unspecified hypotension type Elevated INR (international normalized ratio) R79.1 COPD (chronic obstructive pulmonary disease) J44.9 Leukocytosis D72.829 Leukocytosis type: unspecified H/O mechanical aortic valve replacement Z95.2 Anemia D64.9 Hypertension I10 Abnormal renal function N28.9 Anemia due to blood loss D50.0 (1) Leukocytosis Leukocytosis type: unspecified Qualified Code(s): D72.829 - Elevated white blood cell count, unspecified (2) Hypotension Hypotension type: unspecified hypotension type Qualified Code(s): I95.9 - Hypotension, unspecified
--- NOTE | 2019-10-02 12:15 | Gastroenterology Progress Note ---
Date of Service October 02, 2019 Assessment & Plan (1) Anemia due to blood loss: 64 y/o male with h/o RYGB, PUD s/p EGD 8 weeks ago, admitted here with melena, dizziness, hemorrhagic anemia, supratherapeutic INR, found to have intact RYGB on EGD, with anastomotic ulcer with nonbleeding visible vessel that was clipped. Overnight has done well; 1 brown/black stool; HGB, VSS. - Pt should continue PPI BID - Repeat EGD in 8 weeks back home ([place]) - Pt should f/u with PCP in [place] to follow blood counts, ensure compliance with medical regimen - Importance of tobacco, ETOH, NSAID avoidance was stressed - Will defer management of AC to primary team (pt on Coumadin for h/o mechanical AVR replacement) (2) History of peptic ulcer: Subjective Pt seen and examined; no acute events overnight. EGD done yesterday for anemia, h/o PUD, demonstrated normal esophagus, no fresh blood, RYGB with anastomotic ulcer with a nonbleeding viable vessel; MR-conditional clips were placed. Jejunum normal; no specimens. Overnight HGB stable at 8.6, BUN 21. VSS. He had 1 brown/black stool overnight. Denies abd pain, n/v, fevers. Feels improved today; no dizziness, lightheadedness, syncope. Review of Systems Review of Systems: All systems reviewed & are unremarkable except as noted in HPI & below Physical Exam Constitutional: WD/WN, vitals as above Respiratory: normal respiratory effort, lungs clear to auscultation Cardiovascular: RRR, no murmur, no edema Gastrointestinal (Abdomen): normal bowel sounds, soft, nontender, no hepatosplenomegaly Skin: no rashes, warm and dry Psychiatric: A+Ox3, euthymic affect Results & Data Vital Signs (Past 12 Hours) Vital Signs Temp Pulse Resp BP Pulse Ox 10/02/19 11:14 73 18 163/57 H 94 10/02/19 11:00 75 24 98 10/02/19 10:15 75 21 137/58 L 97 10/02/19 10:00 63 16 97 10/02/19 09:15 73 23 144/69 H 93 10/02/19 09:09 100 H 20 10/02/19 08:15 73 16 96 10/02/19 08:14 67 21 137/57 L 95 10/02/19 08:00 36.4 C L 66 19 94 10/02/19 07:14 67 17 129/67 99 10/02/19 07:00 70 16 97 10/02/19 06:30 69 15 97 10/02/19 06:15 60 14 98 10/02/19 06:14 61 15 105/47 L 98 10/02/19 06:00 54 L 15 98 10/02/19 05:45 59 L 18 98 10/02/19 05:30 59 L 16 98 10/02/19 05:15 59 L 16 98 10/02/19 05:14 60 16 116/51 L 98 10/02/19 05:00 57 L 16 97 10/02/19 04:14 60 16 106/48 L 97 10/02/19 04:00 60 17 97 10/02/19 03:14 67 17 122/54 L 97 10/02/19 03:00 84 13 96 10/02/19 02:14 76 17 124/72 95 10/02/19 02:12 75 16 110/51 L 95 10/02/19 02:00 64 19 96 10/02/19 01:14 64 20 110/51 L 97 10/02/19 01:00 82 30 H 94 Laboratory Results 10/02/19 10/02/19 10/02/19 Range/Units 04:48 04:48 04:48 WBC 9.51 (4.8-10.8) K/uL RBC 3.08 L (4.7-6.1) M/uL Hgb 8.6 L (14.0-18.0) g/dL Hct 26.6 L (42-52) % MCV 86.4 (80-100) fL MCH 27.9 (25-34) pg MCHC 32.3 (32-36) g/dL RDW Std Deviation 52.5 H (36.4-46.3) fL RDW Coeff of Ha 17.1 H (11.5-14.5) % Plt Count 151 (130-400) K/uL MPV 9.0 (7.4-10.4) fL Immature Gran % (Auto) 1.4 % Neut % (Auto) 73.6 % Lymph % (Auto) 15.4 % [place] % (Auto) 5.3 % Eos % (Auto) 4.1 % Baso % (Auto) 0.2 % Immature Gran # (Auto) 0.13 H (0.00-0.02) K/uL Neut # (Auto) 7.01 H (1.4-6.5) K/uL Lymph # (Auto) 1.46 (1.2-3.4) K/uL [place] # (Auto) 0.50 (0.11-0.59) K/uL Eos # (Auto) 0.39 (0-0.5) K/uL Baso # (Auto) 0.02 (0-0.2) K/uL PT 10.0 (9.0-12.0) Seconds INR 1.0 (0.9-1.1) Sodium 142 (136-145) mmol/L Potassium 4.2 (3.5-5.1) mmol/L Chloride 107 (98-107) mmol/L Carbon Dioxide 35 H (21-32) mmol/L Anion Gap 0 L (3-11) BUN 21 H D (7-18) mg/dl Creatinine 1.08 (0.6-1.4) mg/dl Est Cr Clr Drug Dosing 75.1 ml/min Est GFR ( Amer) 82.5 Est GFR (Non-Af Amer) 71.1 BUN/Creatinine Ratio 19.7 (10-20) Glucose 91 (70-99) mg/dl Calcium 8.7 D (8.5-10.1) mg/dl Phosphorus 3.0 (2.5-4.9) mg/dl Magnesium 2.3 (1.8-2.4) mg/dl 10/02/19 10/01/19 Range/Units 00:16 20:28 WBC (4.8-10.8) K/uL RBC (4.7-6.1) M/uL Hgb 8.6 L 8.7 L (14.0-18.0) g/dL Hct 26.6 L 27.4 L (42-52) % MCV (80-100) fL MCH (25-34) pg MCHC (32-36) g/dL RDW Std Deviation (36.4-46.3) fL RDW Coeff of Ha (11.5-14.5) % Plt Count (130-400) K/uL MPV (7.4-10.4) fL Immature Gran % (Auto) % Neut % (Auto) % Lymph % (Auto) % [place] % (Auto) % Eos % (Auto) % Baso % (Auto) % Immature Gran # (Auto) (0.00-0.02) K/uL Neut # (Auto) (1.4-6.5) K/uL Lymph # (Auto) (1.2-3.4) K/uL [place] # (Auto) (0.11-0.59) K/uL Eos # (Auto) (0-0.5) K/uL Baso # (Auto) (0-0.2) K/uL PT (9.0-12.0) Seconds INR (0.9-1.1) Sodium (136-145) mmol/L Potassium (3.5-5.1) mmol/L Chloride (98-107) mmol/L Carbon Dioxide (21-32) mmol/L Anion Gap (3-11) BUN (7-18) mg/dl Creatinine (0.6-1.4) mg/dl Est Cr Clr Drug Dosing ml/min Est GFR ( Amer) Est GFR (Non-Af Amer) BUN/Creatinine Ratio (10-20) Glucose (70-99) mg/dl Calcium (8.5-10.1) mg/dl Phosphorus (2.5-4.9) mg/dl Magnesium (1.8-2.4) mg/dl
[2019-10-02 14:15] LABS: Hematocrit (blood only) 28.5 % (42-52); Hemoglobin 9.1 g/dL (14.0-18.0)
[2019-10-02] MEDS: Heparin IV Standard *NO* Bolus IV SCH ×3 (16:02→19:15)
--- NOTE | 2019-10-02 19:57 | Hospitalist Progress Note ---
Date of Service October 02, 2019 Assessment & Plan (1) Upper gastrointestinal bleed: (2) Anemia: (3) Supratherapeutic INR: (4) H/O mechanical aortic valve replacement: Present on admission with lightheadedness, dizziness, black stools. Hgb 5.3 and INR 4 on admission ED discussed case with Dr. Fish who recommends vitamin K and Faith Received [address] abd/pelvis done at [facility] showed no acute finding S/P EGD done showed no active bleeding GI recommended to continue IV PPI for another 24 hr, then transition to oral PPI BID Will need to repeat EGD in 8 weeks and avoid NSAID Tolerated clear liquid diet Recent Hgb 9.1 today Continue monitor H/H Will resume anticoagulant tomorrow if H/H stable (5) Leukocytosis: Possible due to reactive Afebrile WBC trending down Blood cx negative Continue monitor (6) Abnormal renal function: Creatinine 1.8, unknown baseline Creatinine stable Continue to monitor BMP (7) Hypertension: BP stable Continue to hold lisinopril and HCTZ (8) COPD (chronic obstructive pulmonary disease): Continue neb treatment Stable (9) DVT prophylaxis: SCDs due to acute GI bleeding CODE STATUS FULL CODE Subjective Pt was seen and examined Lying in bed with no distress Pt said that he feels much better No episode of blood stool Denies any chest pain, palpitation and SOB Physical Exam Physical Exam: General- No acute distress Head- atraumatic Eyes- PERRL, EOMI, ENT- oropharynx clear Neck- supple, no JVD Lungs- clear to auscultation Heart- regular rhythm; no murmur Abdomen- normal bowel sounds, soft, nontender Extremities- no calf tenderness Neuro- alert, oriented x 3; PERRL, EOMI; no facial palsy; no dysarthria Skin- warm & dry Results & Data Vital Signs (Past 12 Hours) Vital Signs Temp Pulse Pulse Resp BP BP Pulse Ox 10/02/19 19:29 36.6 C 77 18 144/80 H 95 10/02/19 15:23 36.8 C 71 18 138/75 95 10/02/19 11:14 73 18 163/57 H 94 10/02/19 11:00 75 24 98 10/02/19 10:15 75 21 137/58 L 97 10/02/19 10:00 63 16 97 10/02/19 09:15 73 23 144/69 H 93 10/02/19 09:09 100 H 20 10/02/19 08:15 73 16 96 10/02/19 08:14 67 21 137/57 L 95 10/02/19 08:00 36.4 C L 66 19 94 (1) Leukocytosis Leukocytosis type: unspecified Qualified Code(s): D72.829 - Elevated white blood cell count, unspecified
[2019-10-02] MEDS ORDERED: PANTOprazole 40 MG TAB PO SCH (21:00)
[2019-10-03] MEDS: PANTOprazole 40 MG in DEXTROSE 5% 100 ML IV SCH ×2 (01:51→07:03)
[2019-10-03] MEDS: FLUTICASONE FUROATE 100MCG 14 PUFFS/INHALER INH SCH (08:58)
[2019-10-03] MEDS: UMECLIDINIUM/VILANTEROL 62.5/25MCG 7 PUFFS/INHALER INH SCH (08:58)
[2019-10-03 09:18] LABS: Hematocrit (blood only) 30.8 % (42-52); Hemoglobin 9.7 g/dL (14.0-18.0); Mean Corpuscular Hemoglobin 27.4 pg (25-34); Mean Corpuscular Hgb Conc 31.5 g/dL (32-36); Mean Platelet Volume 8.4 fL (7.4-10.4); Platelet Count 161 K/uL (130-400); RDW Coefficient of Variation 16.9 % (11.5-14.5); RDW Standard Deviation 51.7 fL (36.4-46.3); Red Blood Count 3.54 M/uL (4.7-6.1); White Blood Count 10.68 K/uL (4.8-10.8)
[2019-10-03] MEDS: lisinopriL 40 MG TAB PO SCH (13:14)
[2019-10-03 14:37] LABS: Basophils # (auto) 0.03 K/uL (0-0.2); Basophils % (auto) 0.3 %; Eosinophils # (auto) 0.43 K/uL (0-0.5); Eosinophils % (auto) 3.8 %; Immature Granulocytes # (auto) 0.13 K/uL (0.00-0.02); Immature Granulocytes % (auto) 1.2 %; Lymphocytes # (auto) 1.47 K/uL (1.2-3.4); Lymphocytes % (auto) 13.1 %; Monocytes # (auto) 0.66 K/uL (0.11-0.59); Monocytes % (auto) 5.9 %; Neutrophils # (auto) 8.46 K/uL (1.4-6.5); Neutrophils % (auto) 75.7 %; Nucleated RBC # (auto) 0.03 K/uL (0-0); Nucleated RBC % (auto) 0.3 %
[2019-10-03 14:42] LABS: INR 0.9 (0.9-1.1); Partial Thromboplastin Ratio 0.8; Partial Thromboplastin Time 21.3 Seconds (21.0-31.0); Prothrombin Time 9.7 Seconds (9.0-12.0)
[2019-10-03] MEDS: HEPARIN SODIUM/DEXTROSE 25,000 UNITS/500 ML BAG IV SCH (14:55)
--- NOTE | 2019-10-03 18:11 | Hospitalist Progress Note ---
Date of Service October 03, 2019 Assessment & Plan (1) Upper gastrointestinal bleed: (2) Anemia: (3) Supratherapeutic INR: (4) H/O mechanical aortic valve replacement: GI bleed possible related to anticoagulant Present on admission with lightheadedness, dizziness, black stools. Hgb 5.3 and INR 4 on admission ED discussed case with Dr. Fish who recommends vitamin K and Kcentra Received [address] abd/pelvis done at [facility] showed no acute finding S/P EGD done showed no active bleeding GI recommended to continue IV PPI for another 24 hr, then transition to oral PPI BID Will need to repeat EGD in 8 weeks and avoid NSAID Diet advanced as tolerated Recent Hgb 9.7today Continue monitor H/H Starting on anticoagulant with heparin drip today for the mechanical valve Discussed with patient about the risk of GI bleeding with the heparin drip (5) Acute renal failure: Possible related to blood loss due to GI bleed Creatinine 1.8, unknown baseline Creatinine stable resolved (6) Leukocytosis: Possible due to reactive Afebrile WBC trending down Blood cx negative Resolved (7) Hypertension: BP stable Lisinopril resumed Continue to hold HCTZ and amlodipine (8) COPD (chronic obstructive pulmonary disease): Continue neb treatment Stable (9) DVT prophylaxis: Starting on heparin drip CODE STATUS FULL CODE Subjective Pt was seen and examined Lying in bed with no distress Pt said that he feels fine Tolerated diet Denies any chest pain, palpitation and SOB Physical Exam Physical Exam: General- No acute distress Head- atraumatic Eyes- PERRL, EOMI, ENT- oropharynx clear Neck- supple, no JVD Lungs- clear to auscultation Heart- regular rhythm; no murmur Abdomen- normal bowel sounds, soft, nontender Extremities- no calf tenderness Neuro- alert, oriented x 3; PERRL, EOMI; no facial palsy; no dysarthria Skin- warm & dry Results & Data Vital Signs (Past 12 Hours) Vital Signs Temp Pulse Pulse Resp BP Pulse Ox 10/03/19 15:26 36.8 C 78 18 112/64 91 10/03/19 11:41 36.7 C 81 18 149/78 H 92 10/03/19 08:00 79 10/03/19 07:49 36.4 C L 82 22 132/68 97 (1) Leukocytosis Leukocytosis type: unspecified Qualified Code(s): D72.829 - Elevated white blood cell count, unspecified
[2019-10-03 21:31] LABS: Partial Thromboplastin Ratio 1.1; Partial Thromboplastin Time 30.8 Seconds (21.0-31.0)
[2019-10-03] MEDS: PANTOprazole 40 MG TAB PO SCH (21:37)
[2019-10-03] MEDS ORDERED: LORazepam 0.5 MG TAB PO STA (21:51)
[2019-10-03] MEDS ORDERED: HEPARIN IV BOLUS 6,000 UNITS in SYRINGE 0 ML IV ONE (22:30)
[2019-10-04] MEDS ORDERED: ALBUMIN 25% 50 ML IV ONE (04:46)
[2019-10-04 05:37] LABS: Basophils # (auto) 0.01 K/uL (0-0.2); Basophils % (auto) 0.1 %; Eosinophils # (auto) 0.44 K/uL (0-0.5); Eosinophils % (auto) 3.4 %; Hemoglobin 9.1 g/dL (14.0-18.0); Immature Granulocytes # (auto) 0.16 K/uL (0.00-0.02); Immature Granulocytes % (auto) 1.2 %; Lymphocytes # (auto) 1.75 K/uL (1.2-3.4); Lymphocytes % (auto) 13.5 %; Mean Corpuscular Hemoglobin 27.9 pg (25-34); Mean Corpuscular Hgb Conc 32.5 g/dL (32-36); Mean Corpuscular Volume 85.9 fL (80-100); Monocytes # (auto) 0.82 K/uL (0.11-0.59); Monocytes % (auto) 6.3 %; Neutrophils # (auto) 9.81 K/uL (1.4-6.5); Neutrophils % (auto) 75.5 %; Platelet Count 191 K/uL (130-400); RDW Coefficient of Variation 17.3 % (11.5-14.5); RDW Standard Deviation 51.9 fL (36.4-46.3); Red Blood Count 3.26 M/uL (4.7-6.1); White Blood Count 12.99 K/uL (4.8-10.8)
[2019-10-04 05:57] LABS: BUN Creatinine Ratio 19.8 (10-20); Calcium 9.1 mg/dl (8.5-10.1); Creatinine Clr Calc Pharmacy 54.1 ml/min; Est GFR (African American) 58.2; Est GFR (Non-African American) 50.2; Magnesium 2.2 mg/dl (1.8-2.4); Potassium 3.9 mmol/L (3.5-5.1)
[2019-10-04] MEDS ORDERED: NSS + 20MEQ KCL 20 MEQ/1,000 ML BAG IV ONE (06:00)
[2019-10-04 06:01] LABS: Partial Thromboplastin Ratio 2.1
--- NOTE | 2019-10-04 06:04 | Communication Note ---
Date of Service: October 04, 2019 Made aware by RN of SBP 90s. Patient only complaining of weakness as per RN. No overt bleeding. Hemoglobin stable at 9 Serum creatinine 1.44 from normal baseline yesterday AP Hypotension secondary to hypovolemia ARF Baseline UA, IVF Appropriate to hold lisinopril per line until hemoglobin at baseline Will relay to AM provider.
[2019-10-04 06:20] LABS: Partial Thromboplastin Time 56.2 Seconds (21.0-31.0)
[2019-10-04] MEDS: HEPARIN SODIUM/DEXTROSE 25,000 UNITS/500 ML BAG IV SCH ×2 (07:23→21:37)
[2019-10-04 08:44] LABS: Appearance Urine Clear (Clear); Bilirubin Urine Negative (Negative); Blood Urine Negative (Negative); Color Urine Yellow; Glucose Urine UA Negative (Negative); Ketones Urine Negative (Negative); Leukocyte Esterase Urine Negative (Negative); Nitrite Urine Negative (Negative); Protein Urine Negative (Negative); Urobilinogen Urine Negative (Negative)
[2019-10-04] MEDS: PANTOprazole 40 MG TAB PO SCH ×2 (10:27→20:25)
[2019-10-04] MEDS: FLUTICASONE FUROATE 100MCG 14 PUFFS/INHALER INH SCH (10:27)
[2019-10-04] MEDS: UMECLIDINIUM/VILANTEROL 62.5/25MCG 7 PUFFS/INHALER INH SCH (10:27)
[2019-10-04] MEDS ORDERED: WARFARIN SOD 5 MG TAB PO ONE (17:00)
--- NOTE | 2019-10-04 17:23 | Hospitalist Progress Note ---
Date of Service October 04, 2019 Assessment & Plan (1) Upper gastrointestinal bleed: (2) Anemia: (3) Supratherapeutic INR: (4) H/O mechanical aortic valve replacement: GI bleed possible related to anticoagulant Present on admission with lightheadedness, dizziness, black stools. Hgb 5.3 and INR 4 on admission ED discussed case with Dr. Fish who recommends vitamin K and Kcentra Received [address] abd/pelvis done at [facility] showed no acute finding S/P EGD done showed no active bleeding GI recommended to continue IV PPI for another 24 hr, then transition to oral PPI BID Will need to repeat EGD in 8 weeks and avoid NSAID Diet advanced as tolerated Recent Hgb 9.1 today Continue monitor H/H On anticoagulant with heparin drip today for the mechanical valve Discussed with patient about the risk of GI bleeding with the heparin drip Coumadin 5 mg given today (5) Acute renal failure: Possible related to blood loss due to GI bleed Creatinine 1.8, unknown baseline Creatinine bumped to 1.4 Lasix put on hold Continue gentle hydration Monitor BMP (6) Leukocytosis: Possible due to reactive Afebrile WBC trending down Blood cx negative Resolved (7) Hypertension: BP stable Lisinopril on hold due to low BP early and increased creatinine Continue to hold HCTZ and amlodipine Continue monitor BP (8) COPD (chronic obstructive pulmonary disease): Continue neb treatment Stable (9) DVT prophylaxis: Starting on heparin drip CODE STATUS FULL CODE Subjective Pt was seen and examined Sitting in bed with no distress Pt said that he did not sleep last night He said that he was given Ambien last night with no help Denies any chest pain, palpitation and SOB Physical Exam Physical Exam: General- No acute distress Head- atraumatic Eyes- PERRL, EOMI, ENT- oropharynx clear Neck- supple, no JVD Lungs- clear to auscultation Heart- regular rhythm; no murmur Abdomen- normal bowel sounds, soft, nontender Extremities- no calf tenderness Neuro- alert, oriented x 3; PERRL, EOMI; no facial palsy; no dysarthria Skin- warm & dry Results & Data Vital Signs (Past 12 Hours) Vital Signs Temp Pulse Pulse Pulse Resp BP BP 10/04/19 15:52 69 110/58 L 01/18/20 15:26 36.9 C 71 15 87/48 L 10/04/19 15:00 80 10/04/19 11:23 36.5 C 94 H 16 104/56 L 10/04/19 08:00 77 10/04/19 07:35 78 99/60 L 10/04/19 07:00 36.3 C L 74 20 78/49 L Pulse Ox 10/04/19 15:52 10/04/19 15:26 91 10/04/19 15:00 10/04/19 11:23 95 10/04/19 08:00 10/04/19 07:35 10/04/19 07:00 93 (1) Leukocytosis Leukocytosis type: unspecified Qualified Code(s): D72.829 - Elevated white blood cell count, unspecified
[2019-10-04] MEDS ORDERED: TRAZODONE HCL 50 MG TAB PO PRN (19:11)
[2019-10-05] MEDS: ACETAMINOPHEN 325 MG TAB PO PRN ×3 (02:13→20:01)
[2019-10-05 06:48] LABS: Hematocrit (blood only) 27.7 % (42-52); Mean Corpuscular Hgb Conc 32.5 g/dL (32-36); Mean Platelet Volume 9.2 fL (7.4-10.4); Platelet Count 212 K/uL (130-400); RDW Coefficient of Variation 17.4 % (11.5-14.5); RDW Standard Deviation 53.8 fL (36.4-46.3); Red Blood Count 3.22 M/uL (4.7-6.1); White Blood Count 11.15 K/uL (4.8-10.8)
[2019-10-05 07:21] LABS: BUN Creatinine Ratio 24.1 (10-20); Creatinine Clr Calc Pharmacy 67.8 ml/min; Est GFR (African American) 75.6; Est GFR (Non-African American) 65.3; Potassium 4.5 mmol/L (3.5-5.1)
[2019-10-05 07:57] LABS: Partial Thromboplastin Ratio 1.9
[2019-10-05 07:59] LABS: Partial Thromboplastin Time 51.6 Seconds (21.0-31.0)
[2019-10-05] MEDS: UMECLIDINIUM/VILANTEROL 62.5/25MCG 7 PUFFS/INHALER INH SCH (08:35)
[2019-10-05] MEDS: FLUTICASONE FUROATE 100MCG 14 PUFFS/INHALER INH SCH (08:36)
[2019-10-05] MEDS: PANTOprazole 40 MG TAB PO SCH ×2 (10:11→20:02)
--- NOTE | 2019-10-05 12:49 | Hospitalist Progress Note ---
Date of Service October 05, 2019 Assessment & Plan (1) Upper gastrointestinal bleed: (2) Anemia: (3) Supratherapeutic INR: (4) H/O mechanical aortic valve replacement: GI bleed possible related to anticoagulant Present on admission with lightheadedness, dizziness, black stools. Hgb 5.3 and INR 4 on admission ED discussed case with Dr. Fish who recommends vitamin K and Kcentra Received [address] abd/pelvis done at [facility] showed no acute finding S/P EGD done showed no active bleeding GI recommended to continue IV PPI for another 24 hr, then transition to oral PPI BID Will need to repeat EGD in 8 weeks and avoid NSAID Diet advanced as tolerated Recent Hgb 9 today Continue monitor H/H On anticoagulant with heparin drip today for the mechanical valve Discussed with patient about the risk of GI bleeding while on the heparin drip Continue Coumadin 5 mg daily (5) Acute renal failure: Possible related to blood loss due to GI bleed Creatinine 1.8, unknown baseline Creatinine improved to 1.1 today Continue to hold Lasix for now Monitor BMP (6) Leukocytosis: Possible due to reactive Afebrile WBC trending down Blood cx negative Resolved (7) Hypertension: BP stable Lisinopril on hold due to low BP early and increased creatinine Continue to hold HCTZ and amlodipine Continue monitor BP (8) COPD (chronic obstructive pulmonary disease): Continue neb treatment Stable Left ankle pain Will get an xray Tylenol for pain control (9) DVT prophylaxis: Starting on heparin drip CODE STATUS FULL CODE Subjective Pt was seen and examined Lying in bed with no distress Pt said that she hit his left ankle last night on the heat He said that he is left ankle is very sore He said that pain is worst when touching the area and when pressure applies to it He said that he can't walk or stand on the left foot due to the pain Denies any chest pain, palpitation, dizziness and SOB Physical Exam Physical Exam: General- No acute distress Head- atraumatic Eyes- PERRL, EOMI, ENT- oropharynx clear Neck- supple, no JVD Lungs- clear to auscultation Heart- regular rhythm; no murmur Abdomen- normal bowel sounds, soft, nontender Extremities- no calf tenderness, +Left ankle pain Neuro- alert, oriented x 3; PERRL, EOMI; no facial palsy; no dysarthria Skin- warm & dry Results & Data Vital Signs (Past 12 Hours) Vital Signs Temp Pulse Pulse Resp BP Pulse Ox 10/05/19 07:58 36.7 C 79 20 127/72 94 10/05/19 04:18 36.8 C 88 22 107/63 92 (1) Leukocytosis Leukocytosis type: unspecified Qualified Code(s): D72.829 - Elevated white blood cell count, unspecified
[2019-10-05] MEDS: HEPARIN SODIUM/DEXTROSE 25,000 UNITS/500 ML BAG IV SCH (13:37)
[2019-10-05] MEDS ORDERED: TRAMADOL HCL 50 MG TABLET PO ONE (14:37)
--- NOTE | 2019-10-05 14:57 | XRay Report ---
XR ankle LT 2V CLINICAL HISTORY: 64 years-old Male presenting with Left ankle pain. TECHNIQUE: Frontal, mortise, and lateral views of the left ankle were obtained. COMPARISON: None. FINDINGS: Mild soft tissue swelling suggested over the lateral malleolus and lateral midfoot. Ankle mortise con gruent. No acute fracture or malalignment. Degenerative changes, osseous erosion, or posttraumatic de formity at the base of the fifth metatarsal. Enthesophyte at the insertion of the Achilles tendon. At herosclerosis. IMPRESSION: 1. No acute osseous injury. 2. Nonspecific mild soft tissue swelling over the lateral ankle. 3. Degenerative and other changes as above. ACT 112: Negative or not required by law. Electronically signed by: Juma Cowart M.D. 10/05/2019 2:55 PM
[2019-10-05] MEDS: WARFARIN SOD 5 MG TAB PO SCH (16:41)
[2019-10-05] MEDS: TRAZODONE HCL 50 MG TAB PO PRN (22:07)
[2019-10-06] MEDS: ACETAMINOPHEN 325 MG TAB PO PRN ×3 (03:20→21:58)
[2019-10-06] MEDS: HEPARIN SODIUM/DEXTROSE 25,000 UNITS/500 ML BAG IV SCH ×2 (03:51→19:05)
[2019-10-06 06:57] LABS: INR 1.1 (0.9-1.1); Prothrombin Time 11.2 Seconds (9.0-12.0)
[2019-10-06 07:41] LABS: Partial Thromboplastin Ratio 2.5
[2019-10-06 08:41] LABS: Hematocrit (blood only) 26.7 % (42-52); Hemoglobin 8.4 g/dL (14.0-18.0); Mean Corpuscular Hemoglobin 27.1 pg (25-34); Mean Corpuscular Hgb Conc 31.5 g/dL (32-36); Mean Corpuscular Volume 86.1 fL (80-100); Mean Platelet Volume 9.3 fL (7.4-10.4); Platelet Count 228 K/uL (130-400); RDW Coefficient of Variation 16.9 % (11.5-14.5); RDW Standard Deviation 52.2 fL (36.4-46.3); White Blood Count 8.01 K/uL (4.8-10.8)
[2019-10-06] MEDS: PANTOprazole 40 MG TAB PO SCH ×2 (08:50→20:55)
[2019-10-06] MEDS: UMECLIDINIUM/VILANTEROL 62.5/25MCG 7 PUFFS/INHALER INH SCH (08:50)
[2019-10-06] MEDS: FLUTICASONE FUROATE 100MCG 14 PUFFS/INHALER INH SCH (08:51)
[2019-10-06 14:36] LABS: Partial Thromboplastin Ratio 1.9
[2019-10-06 14:42] LABS: Partial Thromboplastin Time 50.7 Seconds (21.0-31.0)
[2019-10-06] MEDS: WARFARIN SOD 5 MG TAB PO SCH (16:23)
[2019-10-06] MEDS ORDERED: COLCHICINE 0.6 MG TAB PO ONE (18:40)
--- NOTE | 2019-10-06 18:46 | Hospitalist Progress Note ---
Date of Service October 06, 2019 Assessment & Plan (1) Upper gastrointestinal bleed: (2) Anemia: (3) Supratherapeutic INR: (4) H/O mechanical aortic valve replacement: GI bleed possible related to anticoagulant Present on admission with lightheadedness, dizziness, black stools. Hgb 5.3 and INR 4 on admission ED discussed case with Dr. Fish who recommends vitamin K and Kcentra Received [address] abd/pelvis done at [facility] showed no acute finding S/P EGD done showed no active bleeding GI recommended to continue IV PPI for another 24 hr, then transition to oral PPI BID Will need to repeat EGD in 8 weeks and avoid NSAID Diet advanced as tolerated Hgb dropped to 8.4 today Continue monitor H/H On anticoagulant with heparin drip today for the mechanical valve Discussed with patient about the risk of GI bleeding while on the heparin drip Continue Coumadin 5 mg daily (5) Acute renal failure: Possible related to blood loss due to GI bleed Creatinine 1.8, unknown baseline Creatinine improved to 1.1 Continue to hold Lasix for now Monitor BMP (6) Leukocytosis: Possible due to reactive Afebrile WBC trending down Blood cx negative Resolved (7) Hypertension: BP stable Lisinopril on hold due to low BP early and increased creatinine Continue to hold HCTZ and amlodipine Continue monitor BP (8) COPD (chronic obstructive pulmonary disease): Continue neb treatment Stable Ankle pain CXR showed nonspecific mild soft tissue swelling over the lateral ankle. Might be related to gout Tylenol for pain control Will trial colchicine (9) DVT prophylaxis: Starting on heparin drip CODE STATUS FULL CODE Subjective Pt was seen and examined. Lying in bed with no distress Pt said that he is having pain now in both ankle worst in the left one Pt said that he is not able to stand on his feet Denies any chest pain, palpitation, dizziness and SOB Physical Exam Physical Exam: General- No acute distress Head- atraumatic Eyes- PERRL, EOMI, ENT- oropharynx clear Neck- supple, no JVD Lungs- clear to auscultation Heart- regular rhythm; no murmur Abdomen- normal bowel sounds, soft, nontender Extremities- +calf tenderness Neuro- alert, oriented x 3; PERRL, EOMI; no facial palsy; no dysarthria Skin- warm & dry Results & Data Vital Signs (Past 12 Hours) Vital Signs Temp Pulse Pulse Resp BP Pulse Ox 10/06/19 16:00 88 10/06/19 15:17 36.8 C 112 H 20 148/79 H 94 10/06/19 11:01 36.2 C L 84 18 121/67 96 10/06/19 08:00 67 10/06/19 07:50 36.4 C L 87 16 145/65 H 94 (1) Leukocytosis Leukocytosis type: unspecified Qualified Code(s): D72.829 - Elevated white blood cell count, unspecified
[2019-10-06] MEDS: TRAZODONE HCL 50 MG TAB PO PRN (21:57)
[2019-10-07] MEDS: ACETAMINOPHEN 325 MG TAB PO PRN ×3 (04:48→17:24)
[2019-10-07 06:58] LABS: Hematocrit (blood only) 27.3 % (42-52); Hemoglobin 8.7 g/dL (14.0-18.0); Mean Corpuscular Hemoglobin 27.2 pg (25-34); Mean Corpuscular Hgb Conc 31.9 g/dL (32-36); Mean Corpuscular Volume 85.3 fL (80-100); Mean Platelet Volume 8.7 fL (7.4-10.4); Platelet Count 258 K/uL (130-400); RDW Coefficient of Variation 16.3 % (11.5-14.5); RDW Standard Deviation 50.2 fL (36.4-46.3); White Blood Count 8.58 K/uL (4.8-10.8)
[2019-10-07 07:18] LABS: INR 1.2 (0.9-1.1); Prothrombin Time 11.9 Seconds (9.0-12.0)
[2019-10-07 07:20] LABS: Partial Thromboplastin Time 54.3 Seconds (21.0-31.0)
[2019-10-07] MEDS: PANTOprazole 40 MG TAB PO SCH ×2 (08:28→19:50)
[2019-10-07] MEDS: CHOLECALCIFEROL 1,000 UNITS 25 MCG TAB PO SCH (08:28)
[2019-10-07] MEDS: UMECLIDINIUM/VILANTEROL 62.5/25MCG 7 PUFFS/INHALER INH SCH (08:28)
[2019-10-07] MEDS: FLUTICASONE FUROATE 100MCG 14 PUFFS/INHALER INH SCH (08:28)
[2019-10-07] MEDS: COLCHICINE 0.6 MG TAB PO SCH ×2 (09:51→19:50)
[2019-10-07] MEDS: HEPARIN SODIUM/DEXTROSE 25,000 UNITS/500 ML BAG IV SCH (10:42)
[2019-10-07] MEDS: WARFARIN SOD 5 MG TAB PO SCH (16:40)
[2019-10-07] MEDS ORDERED: WARFARIN SOD 2.5 MG TAB PO ONE (17:02)
--- NOTE | 2019-10-07 17:50 | Hospitalist Progress Note ---
Date of Service October 07, 2019 Assessment & Plan (1) Upper gastrointestinal bleed: (2) Anemia: (3) Supratherapeutic INR: (4) H/O mechanical aortic valve replacement: GI bleed possible related to anticoagulant Present on admission with lightheadedness, dizziness, black stools. Hgb 5.3 and INR 4 on admission ED discussed case with Dr. Fish who recommends vitamin K and Kcentra Received [address] abd/pelvis done at [facility] showed no acute finding S/P EGD done showed no active bleeding GI recommended to continue IV PPI for another 24 hr, then transition to oral PPI BID Will need to repeat EGD in 8 weeks and avoid NSAID Diet advanced as tolerated Hgb 8.7 today Continue monitor H/H On anticoagulant with heparin drip today for the mechanical valve Discussed with patient about the risk of GI bleeding while on the heparin drip INR 1.2 today, Coumadin increased to 7.5 mg today (5) Acute renal failure: Possible related to blood loss due to GI bleed Creatinine 1.8, unknown baseline Creatinine improved to 1.1 Continue to hold Lasix for now Monitor BMP (6) Leukocytosis: Possible due to reactive Afebrile WBC trending down Blood cx negative Resolved (7) Hypertension: BP stable Lisinopril on hold due to low BP early and increased creatinine Continue to hold HCTZ and amlodipine Continue monitor BP (8) COPD (chronic obstructive pulmonary disease): Continue neb treatment Stable Ankle pain Possible related to gout Ankle Xray showed nonspecific mild soft tissue swelling over the lateral ankle. Tylenol for pain control Continue colchicine BIDx 2 days (9) DVT prophylaxis: Starting on heparin drip CODE STATUS FULL CODE Disposition Will discharge once INR at goal Subjective Pt was seen and examined Lying in bed watching TV Pt said that the left ankle pain improves But the right ankle started to get very painful He said that he cannot put weight on the right foot now Denies any chest pain, palpitation and SOB Physical Exam Physical Exam: General- No acute distress Head- atraumatic Eyes- PERRL, EOMI, ENT- oropharynx clear Neck- supple, no JVD Lungs- clear to auscultation Heart- regular rhythm; no murmur Abdomen- normal bowel sounds, soft, nontender Extremities- +Right ankle tenderness Neuro- alert, oriented x 3; PERRL, EOMI; no facial palsy; no dysarthria Skin- warm & dry Results & Data Vital Signs (Past 12 Hours) Vital Signs Temp Pulse Pulse Pulse Resp BP Pulse Ox 10/07/19 15:14 37.0 C 87 18 148/76 H 94 10/07/19 14:51 89 10/07/19 11:28 37.0 C 86 22 152/77 H 93 10/07/19 07:28 72 10/07/19 07:00 36.7 C 74 18 154/74 H 96 (1) Leukocytosis Leukocytosis type: unspecified Qualified Code(s): D72.829 - Elevated white blood cell count, unspecified
[2019-10-07] MEDS: TRAZODONE HCL 50 MG TAB PO PRN (22:52)
[2019-10-08] MEDS: HEPARIN SODIUM/DEXTROSE 25,000 UNITS/500 ML BAG IV SCH ×2 (03:35→19:32)
[2019-10-08 05:29] LABS: Hematocrit (blood only) 27.2 % (42-52); Hemoglobin 8.6 g/dL (14.0-18.0); Mean Corpuscular Hemoglobin 27.2 pg (25-34); Mean Corpuscular Hgb Conc 31.6 g/dL (32-36); Mean Corpuscular Volume 86.1 fL (80-100); Mean Platelet Volume 8.4 fL (7.4-10.4); Platelet Count 308 K/uL (130-400); RDW Coefficient of Variation 16.5 % (11.5-14.5); Red Blood Count 3.16 M/uL (4.7-6.1); White Blood Count 7.22 K/uL (4.8-10.8)
[2019-10-08 05:56] LABS: INR 1.3 (0.9-1.1); Partial Thromboplastin Ratio 2.2; Prothrombin Time 13.4 Seconds (9.0-12.0)
[2019-10-08 06:00] LABS: BUN Creatinine Ratio 18.1 (10-20); Calcium 9.1 mg/dl (8.5-10.1); Creatinine Clr Calc Pharmacy 74.4 ml/min; Est GFR (African American) 84.3; Est GFR (Non-African American) 72.8; Potassium 4.4 mmol/L (3.5-5.1)
[2019-10-08 06:15] LABS: Partial Thromboplastin Time 59.2 Seconds (21.0-31.0)
[2019-10-08] MEDS: CHOLECALCIFEROL 1,000 UNITS 25 MCG TAB PO SCH (09:24)
[2019-10-08] MEDS: COLCHICINE 0.6 MG TAB PO SCH ×2 (09:24→20:16)
[2019-10-08] MEDS: PANTOprazole 40 MG TAB PO SCH ×2 (09:24→20:16)
[2019-10-08] MEDS: UMECLIDINIUM/VILANTEROL 62.5/25MCG 7 PUFFS/INHALER INH SCH (09:25)
[2019-10-08] MEDS: FLUTICASONE FUROATE 100MCG 14 PUFFS/INHALER INH SCH (09:25)
[2019-10-08] MEDS: ACETAMINOPHEN 325 MG TAB PO PRN ×3 (09:28→23:38)
--- NOTE | 2019-10-08 13:59 | Hospitalist Progress Note ---
Date of Service October 08, 2019 Assessment & Plan (1) Upper gastrointestinal bleed: Admitted with hemoglobin of 5.[address] abd/pelvis done at [facility] showed no acute finding S/P EGD done showed no active bleeding-appreciated GI input and recommendation GI recommended to continue IV PPI for another 24 hr, then transition to oral PPI BID Will need to repeat EGD in 8 weeks and avoid NSAID Diet advanced as tolerated Hemoglobin remains stable at 8.6 as of 10/08/2019 Bilateral ankle pain Possible related to gout Ankle Xray showed nonspecific mild soft tissue swelling over the lateral ankle. Tylenol for pain control Continue colchicine BIDx 2 days Ankle pain is improved but he still has significant discomfort right ankle (2) Anemia: As above (3) Supratherapeutic INR: (4) H/O mechanical aortic valve replacement: GI bleed possible related to anticoagulant Present on admission with lightheadedness, dizziness, black stools. Hgb 5.3 and INR 4 on admission ED discussed case with Dr. Fish who recommends vitamin K and Kcentra Received 2 units PRBC On anticoagulant with heparin drip today for the mechanical valve Discussed with patient about the risk of GI bleeding while on the heparin drip INR 1.2 today, Coumadin increased to 7.5 mg today We will continue with Coumadin 7.5 mg today and monitor INR Likely be discharged when INR is therapeutic (5) Acute renal failure: Possible related to blood loss due to GI bleed Creatinine 1.8, unknown baseline Creatinine improved to 1.1 Continue to hold Lasix for now Monitor BMP -creatinine is normalized (6) Leukocytosis: Possible due to reactive Afebrile WBC trending down Blood cx negative Resolved (7) Hypertension: BP stable Lisinopril on hold due to low BP early and increased creatinine Continue to hold HCTZ and amlodipine Continue monitor BP (8) COPD (chronic obstructive pulmonary disease): Continue neb treatment Stable (9) DVT prophylaxis: Starting on heparin drip CODE STATUS FULL CODE Disposition Will discharge once INR at goal Subjective 10/08/2019 The patient was seen and examined in telemetry unit He complains to have right ankle pain more than the left Denies any chest pain and/or palpitation, no abdominal pain nausea and or vomiting No fever and/or chills Review of Systems Review of Systems: All systems reviewed and are unremarkable except as noted below Constitutional: + weakness Musculoskeletal: Pain in both ankles. Right more than the left with swelling Physical Exam Physical Exam: Lying in bed comfortably Constitutional: well developed, well nourished, + acute distress (Secondary to right ankle pain) and + obese Eyes: PERRL, conjunctivae normal, anicteric sclerae ENMT: external ear and nose normal, oropharynx normal Neck: trachea midline, no thyromegaly Respiratory: normal respiratory effort; no respiratory distress Auscultation: lungs clear to auscultation bilaterally Cardiovascular: Rate/Rhythm: regular rate and regular rhythm Heart Sounds: no murmur Gastrointestinal (Abdomen): Inspection/Auscultation: abdomen normal to in spection and normal bowel sounds Musculoskeletal: No acute arthritis in any joints Lymphatic: no cervical or axillary lymphadenopathy Results & Data Vital Signs (Past 12 Hours) Vital Signs Temp Pulse Pulse Pulse Resp BP Pulse Ox 10/08/19 11:41 36.5 C 78 22 143/76 H 97 10/08/19 08:00 82 10/08/19 07:30 36.7 C 84 20 115/65 92 10/08/19 05:33 36.9 C 80 18 128/73 93 Laboratory Results Short CBC 10/08/19 Range/Units 05:13 WBC 7.22 (4.8-10.8) K/uL Hgb 8.6 L (14.0-18.0) g/dL Hct 27.2 L (42-52) % Plt Count 308 (130-400) K/uL BMP 10/08/19 05:13 Sodium 137 Potassium 4.4 Chloride 102 Carbon Dioxide 32 BUN 19 H Creatinine 1.06 Glucose 99 Calcium 9.1 Medications Administered Current Inpatient Medications Acetaminophen (Tylenol) 650 mg PO Q6H PRN PRN Reason: Fever Stop: 11/04/19 02:06 Last Admin: 10/08/19 09:28 Dose: 650 mg Documented by: Colchicine (Colcrys) 0.6 mg PO BID JUHI Stop: 10/09/19 09:44 Last Admin: 10/08/19 09:24 Dose: 0.6 mg Documented by: Fluticasone Furoate (Arnuity Ellipta 100mcg) 1 puffs INH DAILY JUHI; Protocol Stop: 10/31/19 08:59 Last Admin: 10/08/19 09:25 Dose: 1 puffs Documented by: Heparin Sodium/Dextrose (Heparin Sodium/Dextrose) 25,000 units in 500 mls @ 32 mls/hr IV .[id number] [facility]; Protocol Stop: 11/02/19 13:59 Last Titration: 10/08/19 06:16 Dose: 1,600 units/hr, 32 mls/hr Documented by: Lisinopril (Zestril) 40 mg PO DAILY [facility] Stop: 11/02/19 11:44 Last Admin: 10/03/19 13:14 Dose: 40 mg Documented by: Pantoprazole Sodium (Protonix) 40 mg PO BID [facility] Stop: 11/02/19 20:59 Last Admin: 10/08/19 09:24 Dose: 40 mg Documented by: Trazodone HCl (Desyrel) 50 mg PO HS PRN PRN Reason: Insomnia Stop: 11/03/19 19:10 Last Admin: 10/07/19 22:52 Dose: 50 mg Documented by: Umeclidinium/Vilanterol (Anoro Ellipta 62.5/25 Mcg Inh) 1 puffs INH DAILY [facility]; Protocol Stop: 10/31/19 08:59 Last Admin: 10/08/19 09:25 Dose: 1 puffs Documented by: Vitamin D (Vitamin D3) 2,000 units PO QAM [facility] Stop: 11/06/19 08:59 Last Admin: 10/08/19 09:24 Dose: 2,000 units Documented by: Warfarin Sodium (Coumadin) 7.5 mg PO DAILY@1600 [facility] Stop: 11/07/19 15:59 (1) Leukocytosis Leukocytosis type: unspecified Qualified Code(s): D72.829 - Elevated white blood cell count, unspecified
[2019-10-08] MEDS ORDERED: WARFARIN SOD 7.5 MG TAB PO SCH (16:00)
[2019-10-08] MEDS: TRAZODONE HCL 50 MG TAB PO PRN (22:38)
[2019-10-09 05:56] LABS: Basophils # (auto) 0.03 K/uL (0-0.2); Basophils % (auto) 0.5 %; Eosinophils # (auto) 0.42 K/uL (0-0.5); Eosinophils % (auto) 7.6 %; Hematocrit (blood only) 28.7 % (42-52); Hemoglobin 9.2 g/dL (14.0-18.0); Immature Granulocytes # (auto) 0.01 K/uL (0.00-0.02); Immature Granulocytes % (auto) 0.2 %; Lymphocytes # (auto) 1.32 K/uL (1.2-3.4); Mean Corpuscular Hemoglobin 27.4 pg (25-34); Mean Corpuscular Hgb Conc 32.1 g/dL (32-36); Mean Corpuscular Volume 85.4 fL (80-100); Monocytes # (auto) 0.28 K/uL (0.11-0.59); Monocytes % (auto) 5.1 %; Neutrophils # (auto) 3.44 K/uL (1.4-6.5); Neutrophils % (auto) 62.6 %; Platelet Count 368 K/uL (130-400); RDW Coefficient of Variation 16.5 % (11.5-14.5); RDW Standard Deviation 51.5 fL (36.4-46.3); Red Blood Count 3.36 M/uL (4.7-6.1)
[2019-10-09 06:20] LABS: INR 1.6 (0.9-1.1); Partial Thromboplastin Ratio 2.3; Prothrombin Time 15.5 Seconds (9.0-12.0)
[2019-10-09] MEDS: ACETAMINOPHEN 325 MG TAB PO PRN ×2 (07:13→19:30)
[2019-10-09] MEDS: CHOLECALCIFEROL 1,000 UNITS 25 MCG TAB PO SCH (08:48)
[2019-10-09] MEDS: COLCHICINE 0.6 MG TAB PO SCH (08:48)
[2019-10-09] MEDS: PANTOprazole 40 MG TAB PO SCH ×2 (08:48→20:45)
[2019-10-09] MEDS: UMECLIDINIUM/VILANTEROL 62.5/25MCG 7 PUFFS/INHALER INH SCH (08:48)
[2019-10-09] MEDS: FLUTICASONE FUROATE 100MCG 14 PUFFS/INHALER INH SCH (08:49)
[2019-10-09] MEDS: HEPARIN SODIUM/DEXTROSE 25,000 UNITS/500 ML BAG IV SCH (09:48)
--- NOTE | 2019-10-09 15:40 | Hospitalist Progress Note ---
Date of Service October 09, 2019 Assessment & Plan (1) Upper gastrointestinal bleed: Admitted with hemoglobin of 5.[address] abd/pelvis done at [facility] showed no acute finding S/P EGD done showed no active bleeding-appreciated GI input and recommendation GI recommended to continue IV PPI for another 24 hr, then transition to oral PPI BID Will need to repeat EGD in 8 weeks and avoid NSAID Diet advanced as tolerated Hemoglobin remains stable at 8.6 as of 10/08/2019 Hemoglobin is 9.2 on 10/09/2019 Bilateral ankle pain Possible related to gout Ankle Xray showed nonspecific mild soft tissue swelling over the lateral ankle. Tylenol for pain control Continue colchicine BIDx 2 days Ankle pain is improved but he still has significant discomfort right ankle Right ankle pain and swelling are improved (2) Anemia: As above (3) Supratherapeutic INR: (4) H/O mechanical aortic valve replacement: GI bleed possible related to anticoagulant Present on admission with lightheadedness, dizziness, black stools. Hgb 5.3 and INR 4 on admission ED discussed case with Dr. Fish who recommends vitamin K and Kcentra Received 2 units PRBC On anticoagulant with heparin drip today for the mechanical valve Discussed with patient about the risk of GI bleeding while on the heparin drip INR 1.2 today, Coumadin increased to 7.5 mg today We will continue with Coumadin 7.5 mg today and monitor INR Likely be discharged when INR is therapeutic He will get increasing dose of Coumadin today and check INR tomorrow If therapeutic he will be discharged (5) Acute renal failure: Possible related to blood loss due to GI bleed Creatinine 1.8, unknown baseline Creatinine improved to 1.1 Continue to hold Lasix for now Monitor BMP -creatinine is normalized (6) Leukocytosis: Possible due to reactive Afebrile WBC trending down Blood cx negative Resolved (7) Hypertension: BP stable Lisinopril on hold due to low BP early and increased creatinine Continue to hold HCTZ and amlodipine Continue monitor BP We will restart amlodipine and HCTZ (8) COPD (chronic obstructive pulmonary disease): Continue neb treatment Stable (9) DVT prophylaxis: Starting on heparin drip CODE STATUS FULL CODE Disposition Will discharge once INR at goal Subjective 10/08/2019 The patient was seen and examined in telemetry unit He complains to have right ankle pain more than the left Denies any chest pain and/or palpitation, no abdominal pain nausea and or vomiting No fever and/or chills 10/09/2019 Patient was seen and examined in telemetry unit His ankle pain is much better Denies any chest pain and/or palpitation or shortness of breath Review of Systems Review of Systems: All systems reviewed and are unremarkable except as noted below Constitutional: + weakness Musculoskeletal: Pain in both ankles. Right more than the left with swelling Physical Exam Physical Exam: Lying in bed without any acute symptoms Constitutional: well developed, well nourished, + acute distress (Secondary to right ankle pain) and + obese Eyes: PERRL, conjunctivae normal, anicteric sclerae ENMT: external ear and nose normal, oropharynx normal Neck: trachea midline, no thyromegaly Respiratory: normal respiratory effort; no respiratory distress Auscultation: lungs clear to auscultation bilaterally Cardiovascular: Rate/Rhythm: regular rate and regular rhythm Heart Sounds: no murmur Gastrointestinal (Abdomen): Inspection/Auscultation: abdomen normal to inspection and normal bowel sounds Musculoskeletal: Right ankle pain and swelling are better Neurologic: moves all extremities; no focal motor deficits Lymphatic: no cervical or axillary lymphadenopathy Results & Data Vital Signs (Past 12 Hours) Vital Signs Temp Pulse Pulse Resp BP BP Pulse Ox 10/09/19 15:33 73 10/09/19 11:57 36.7 C 87 18 156/78 H 96 10/09/19 07:36 36.3 C L 65 20 170/78 H 94 10/09/19 07:10 74 Laboratory Results Short CBC 10/09/19 Range/Units 05:30 WBC 5.50 (4.8-10.8) K/uL Hgb 9.2 L (14.0-18.0) g/dL Hct 28.7 L (42-52) % Plt Count 368 (130-400) K/uL Medications Administered Current Inpatient Medications Acetaminophen (Tylenol) 650 mg PO Q6H PRN PRN Reason: Fever Stop: 11/04/19 02:06 Last Admin: 10/09/19 07:13 Dose: 650 mg Documented by: Fluticasone Furoate (Arnuity Ellipta 100mcg) 1 puffs INH DAILY [facility]; Protocol Stop: 10/31/19 08:59 Last Admin: 10/09/19 08:49 Dose: 1 puffs Documented by: Heparin Sodium/Dextrose (Heparin Sodium/Dextrose) 25,000 units in 500 mls @ 32 mls/hr IV .[id number] [facility]; Protocol Stop: 11/02/19 13:59 Last Titration: 10/09/19 15:14 Dose: 1,600 units/hr, 32 mls/hr Documented by: Lisinopril (Zestril) 40 mg PO DAILY [facility] Stop: 11/02/19 11:44 Last Admin: 10/03/19 13:14 Dose: 40 mg Documented by: Pantoprazole Sodium (Protonix) 40 mg PO BID JUHI Stop: 11/02/19 20:59 Last Admin: 10/09/19 08:48 Dose: 40 mg Documented by: Trazodone HCl (Desyrel) 50 mg PO HS PRN PRN Reason: Insomnia Stop: 11/03/19 19:10 Last Admin: 10/08/19 22:38 Dose: 50 mg Documented by: Umeclidinium/Vilanterol (Anoro Ellipta 62.5/25 Mcg Inh) 1 puffs INH DAILY [facility]; Protocol Stop: 10/31/19 08:59 Last Admin: 10/09/19 08:48 Dose: 1 puffs Documented by: Vitamin D (Vitamin D3) 2,000 units PO QAM [facility] Stop: 11/06/19 08:59 Last Admin: 10/09/19 08:48 Dose: 2,000 units Documented by: Warfarin Sodium (Coumadin) 10 mg PO DAILY@1600 [facility] Stop: 11/08/19 15:59 Last Admin: 10/09/19 15:29 Dose: 10 mg Documented by: (1) Leukocytosis Leukocytosis type: unspecified Qualified Code(s): D72.829 - Elevated white blood cell count, unspecified
[2019-10-09] MEDS ORDERED: WARFARIN SOD 10 MG TAB PO SCH (16:00)
[2019-10-10] MEDS: TRAZODONE HCL 50 MG TAB PO PRN (00:50)
[2019-10-10] MEDS: HEPARIN SODIUM/DEXTROSE 25,000 UNITS/500 ML BAG IV SCH (01:28)
[2019-10-10 06:14] LABS: INR 2.2 (0.9-1.1); Partial Thromboplastin Ratio 2.6
[2019-10-10 06:28] LABS: Partial Thromboplastin Time 69.3 Seconds (21.0-31.0)
[2019-10-10] MEDS: ACETAMINOPHEN 325 MG TAB PO PRN (07:47)
[2019-10-10] MEDS: UMECLIDINIUM/VILANTEROL 62.5/25MCG 7 PUFFS/INHALER INH SCH (07:48)
[2019-10-10] MEDS: PANTOprazole 40 MG TAB PO SCH (07:49)
[2019-10-10] MEDS: FLUTICASONE FUROATE 100MCG 14 PUFFS/INHALER INH SCH (07:49)
[2019-10-10] MEDS: CHOLECALCIFEROL 1,000 UNITS 25 MCG TAB PO SCH (07:49)
[2019-10-10] MEDS: lisinopriL 40 MG TAB PO SCH (08:14)
--- NOTE | 2019-10-10 12:35 | Hospitalist Progress Note ---
Date of Service October 10, 2019 Assessment & Plan (1) Upper gastrointestinal bleed: Admitted with hemoglobin of 5.[address] abd/pelvis done at [facility] showed no acute finding S/P EGD done showed no active bleeding-appreciated GI input and recommendation GI recommended to continue IV PPI for another 24 hr, then transition to oral PPI BID Will need to repeat EGD in 8 weeks and avoid NSAID Diet advanced as tolerated Hemoglobin remains stable at 8.6 as of 10/08/2019 Hemoglobin is 9.2 on 10/09/2019 Bilateral ankle pain-resolved Possible related to gout Ankle Xray showed nonspecific mild soft tissue swelling over the lateral ankle. Tylenol for pain control Continue colchicine BIDx 2 days Ankle pain is improved but he still has significant discomfort right ankle Right ankle pain and swelling are improved (2) Anemia: As above (3) Supratherapeutic INR: (4) H/O mechanical aortic valve replacement: GI bleed possible related to anticoagulant Present on admission with lightheadedness, dizziness, black stools. Hgb 5.3 and INR 4 on admission ED discussed case with Dr. Fish who recommends vitamin K and Kcentra Received 2 units PRBC On anticoagulant with heparin drip today for the mechanical valve Discussed with patient about the risk of GI bleeding while on the heparin drip INR 1.2 today, Coumadin increased to 7.5 mg today We will continue with Coumadin 7.5 mg today and monitor INR Likely be discharged when INR is therapeutic He will get increasing dose of Coumadin today and check INR tomorrow If therapeutic he will be discharged INR is 2.2 today Will be discharged this afternoon and will have INR checked Sunday (5) Acute renal failure: Possible related to blood loss due to GI bleed Creatinine 1.8, unknown baseline Creatinine improved to 1.1 Continue to hold Lasix for now Monitor BMP -creatinine is normalized (6) Leukocytosis: Possible due to reactive Afebrile WBC trending down Blood cx negative Resolved (7) Hypertension: BP stable Lisinopril on hold due to low BP early and increased creatinine Continue to hold HCTZ and amlodipine Continue monitor BP We will restart amlodipine Will not give any more hydrochlorothiazide as it can cause gout May need to adjust medication to control blood pressure as an outpatient (8) COPD (chronic obstructive pulmonary disease): Continue neb treatment Stable (9) DVT prophylaxis: Starting on heparin drip CODE STATUS FULL CODE Disposition We will discharge home this afternoon Subjective 10/08/2019 The patient was seen and examined in telemetry unit He complains to have right ankle pain more than the left Denies any chest pain and/or palpitation, no abdominal pain nausea and or vo miting No fever and/or chills 10/09/2019 Patient was seen and examined in telemetry unit His ankle pain is much better Denies any chest pain and/or palpitation or shortness of breath 10/10/2019 The patient was seen and examined in telemetry unit He is out of bed on a chair and wants to go home Denies any symptoms whatsoever Review of Systems Review of Systems: All systems reviewed and are unremarkable except as noted below Constitutional: + weakness Cardiovascular: no chest pain and no dyspnea on exertion Gastrointestinal: no abdominal pain Musculoskeletal: Pain in both ankles. Right more than the left with swelling Physical Exam Physical Exam: Sitting on a chair without any acute distress Constitutional: well developed, well nourished, + acute distress (Secondary to right ankle pain) and + obese Eyes: PERRL, conjunctivae normal, anicteric sclerae ENMT: external ear and nose normal, oropharynx normal Neck: trachea midline, no thyromegaly Respiratory: normal respiratory effort; no respiratory distress Auscultation: lungs clear to auscultation bilaterally Cardiovascular: Rate/Rhythm: regular rate and regular rhythm Heart Sounds: no murmur Gastrointestinal (Abdomen): Inspection/Auscultation: abdomen normal to inspection and normal bowel sounds Musculoskeletal: Ankle: ankle normal to inspection Neurologic: moves all extremities; no focal motor deficits Lymphatic: no cervical or axillary lymphadenopathy Results & Data Vital Signs (Past 12 Hours) Vital Signs Temp Pulse Resp BP Pulse Ox 10/10/19 07:30 36.9 C 78 18 137/81 97 10/10/19 04:23 36.5 C 80 19 143/72 H 95 Medications Administered Current Inpatient Medications Acetaminophen (Tylenol) 650 mg PO Q6H PRN PRN Reason: Fever Stop: 11/04/19 02:06 Last Admin: 10/10/19 07:47 Dose: 650 mg Documented by: Fluticasone Furoate (Arnuity Ellipta 100mcg) 1 puffs INH DAILY [facility]; Protocol Stop: 10/31/19 08:59 Last Admin: 10/10/19 07:49 Dose: 1 puffs Documented by: Heparin Sodium/Dextrose (Heparin Sodium/Dextrose) 25,000 units in 500 mls @ 30 mls/hr IV .[id number] [facility]; Protocol Stop: 11/02/19 13:59 Last Titration: 10/10/19 07:15 Dose: 1,500 units/hr, 30 mls/hr Documented by: Lisinopril (Zestril) 40 mg PO DAILY [facility] Stop: 11/02/19 11:44 Last Admin: 10/10/19 08:14 Dose: 40 mg Documented by: Pantoprazole Sodium (Protonix) 40 mg PO BID JUHI Stop: 11/02/19 20:59 Last Admin: 10/10/19 07:49 Dose: 40 mg Documented by: Trazodone HCl (Desyrel) 50 mg PO HS PRN PRN Reason: Insomnia Stop: 11/03/19 19:10 Last Admin: 10/10/19 00:50 Dose: 50 mg Documented by: Umeclidinium/Vilanterol (Anoro Ellipta 62.5/25 Mcg Inh) 1 puffs INH DAILY [facility]; Protocol Stop: 10/31/19 08:59 Last Admin: 10/10/19 07:48 Dose: 1 puffs Documented by: Vitamin D (Vitamin D3) 2,000 units PO QAM [facility] Stop: 11/06/19 08:59 Last Admin: 10/10/19 07:49 Dose: 2,000 units Documented by: Warfarin Sodium (Coumadin) 10 mg PO DAILY@1600 JUHI Stop: 11/08/19 15:59 Last Admin: 10/09/19 15:29 Dose: 10 mg Documented by: (1) Leukocytosis Leukocytosis type: unspecified Qualified Code(s): D72.829 - Elevated white blood cell count, unspecified
[2019-10-10 12:50] LABS: Partial Thromboplastin Ratio 2.1
[2019-10-10 14:05] LABS: Partial Thromboplastin Time 56.4 Seconds (21.0-31.0)
--- NOTE | 2019-10-11 08:30 | Discharge Summary ---
Date of Service October 11, 2019 Admission HPI Per Admitting Provider 64-year-old male who presents the ED for evaluation of lightheadedness and dizziness. 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 About 8 weeks ago, he reports he was diagnosed with a stomach ulcer. Reports that he was hospitalized and required blood transfusion. Patient is anticoagulated on Coumadin for history of mechanical aortic valve replacement. Coumadin was resumed after hospitalization. Patient reports that 3 days ago, he noted his stools were black. He self stopped his Coumadin. He did not seek medical attention. Patient reports he has had progressively worsening lightheadedness and dizziness. He reports he decided to drive his truck anyway. Lightheadedness and dizziness became so severe today that he pulled over and called EMS. Patient was brought to the ED for further evaluation. Patient denies syncopal events. No chest pain. Reports exertional shortness of breath over the past couple of days. Has a dry, nonproductive cough which he has intermittently. No sputum production. Denies fevers and chills. No abdominal pain, nausea, vomiting, diarrhea. Denies urinary symptoms. In the ED, Hgb 5.3, INR 4.0. Hypotensive with systolic BPs in the 90s, improving after IVF. WBC 20 K. ED discussed case with Dr. Fish who recommends IV vitamin K and Kcentra. Patient was given a Protonix bolus and started on a drip, also given IV famotidine and IV Zosyn. Admission Exam Per Admitting Provider Constitutional: WD/WN, vitals as above no acute distress Eyes: PERRL, conjunctivae normal, anicteric sclerae ENMT: external ear and nose normal, oropharynx normal Respiratory: normal respiratory effort; no respiratory distress Auscultation: + wheezes (Scattered, expiratory) Cardiovascular: Rate/Rhythm: regular rate and regular rhythm Vessels: normal peripheral pulses Extremities: no edema Gastrointestinal (Abdomen): normal bowel sounds, soft, nontender, no hepatosplenomegaly Inspection/Auscultation: + abdomen distended Musculoskeletal: no cyanosis or clubbing, extremities motor strength 5/5 Skin: no rashes, warm and dry + pallor Neurologic: PERRL, EOMI, accommodation nl, no face palsy, no dysarthria Psychiatric: A+Ox3, euthymic affect Principal Diagnosis Upper GI bleed, status post EGD without any acute bleeding, acute blood loss anemia which required 2 units of PRBC transfusion, mechanical aortic valve replacement on anticoagulation, hypertension Discharge Exam Constitutional well developed, well nourished, + acute distress (Secondary to right ankle pain) and + obese Eyes PERRL, conjunctivae normal, anicteric sclerae ENMT external ear and nose normal, oropharynx normal Neck trachea midline, no thyromegaly Respiratory normal respiratory effort; no respiratory distress Auscultation: lungs clear to auscultation bilaterally Cardiovascular Rate/Rhythm: regular rate and regular rhythm Heart Sounds: no murmur Gastrointestinal (Abdomen) Inspection/Auscultation: abdomen normal to inspection and normal bowel sounds Musculoskeletal Ankle: ankle normal to inspection Neurologic moves all extremities; no focal motor deficits Lymphatic no cervical or axillary lymphadenopathy Discharge Data Allergies Allergy/AdvReac Type Severity Reaction Status Date / Time "Cough medicine" AdvReac Unknown "Jittery" Uncoded 09/30/19 17:28 / "couldn't sleep" Consultations 09/30/19 18:39 ED Decision to Admit Stat 09/30/19 20:54 Consult Case Management - Discharge Planning Routine Consult Gastroenterology Routine Consult Health Information Management Stat Consult Safety Director Routine Procedures Performed Operation Date: 10/01/19 08:10 Actual Procedures p Esophagogastroduodenoscopy(Not Applicable) - [facility] Course (1) Upper gastrointestinal bleed: Admitted with hemoglobin of 5.[address] abd/pelvis done at [facility] showed no acute finding S/P EGD done showed no active bleeding-appreciated GI input and recommendation GI recommended to continue IV PPI for another 24 hr, then transition to oral PPI BID Will need to repeat EGD in 8 weeks and avoid NSAID Diet advanced as tolerated Hemoglobin remains stable at 8.6 as of 10/08/2019 Hemoglobin is 9.2 on 10/09/2019 Bilateral ankle pain-resolved Possible related to gout Ankle Xray showed nonspecific mild soft tissue swelling over the lateral ankle. Tylenol for pain control Continue colchicine BIDx 2 days Ankle pain is improved but he still has significant discomfort right ankle Right ankle pain and swelling are improved (2) Anemia: As above (3) Supratherapeutic INR: (4) H/O mechanical aortic valve replacement: GI bleed possible related to anticoagulant Present on admission with lightheadedness, dizziness, black stools. Hgb 5.3 and INR 4 on admission ED discussed case with Dr. Fish who recommends vitamin K and Faith Received 2 units PRBC On anticoagulant with heparin drip today for the mechanical valve Discussed with patient about the risk of GI bleeding while on the heparin drip INR 1.2 today, Coumadin increased to 7.5 mg today We will continue with Coumadin 7.5 mg today and monitor INR Likely be discharged when INR is therapeutic He will get increasing dose of Coumadin today and check INR tomorrow If therapeutic he will be discharged INR is 2.2 today Will be discharged this afternoon and will have INR checked Sunday (5) Acute renal failure: Possible related to blood loss due to GI bleed Creatinine 1.8, unknown baseline Creatinine improved to 1.1 Continue to hold Lasix for now Monitor BMP -creatinine is normalized (6) Leukocytosis: Possible due to reactive Afebrile WBC trending down Blood cx negative Resolved (7) Hypertension: BP stable Lisinopril on hold due to low BP early and increased creatinine Continue to hold HCTZ and amlodipine Continue monitor BP We will restart amlodipine Will not give any more hydrochlorothiazide as it can cause gout May need to adjust medication to control blood pressure as an outpatient (8) COPD (chronic obstructive pulmonary disease): Continue neb treatment Stable (9) DVT prophylaxis: Starting on heparin drip CODE STATUS FULL CODE Disposition We will discharge home this afternoon Total Time Total Time Spent Total Time Spent (In Minutes): 35 minutes Total Time Includes: Examination of the Patient, Discharge Planning, Medication Reconciliation and Communication With Other Providers Discharge Plan Discharge Items Patient Disposition: Home - Self-Care Reason For Visit: GI BLEED Discharge Diagnosis: Upper GI bleed, status post EGD without any acute bleeding, acute blood loss anemia which required 2 units of PRBC transfusion, mechanical aortic valve replacement on anticoagulation, hypertension Condition on Discharge: Good Activity: Resume your previous activity Driving/Machine Use: 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 Have your INR checked on Sunday and dose Coumadin as per the advice. 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 by a [facility] certified Retail Management Keyholder Pending Studies at Discharge: No Stand-Alone Forms: My [facility], Smoking Cessation Medications and DC Order Prescriptions: New pantoprazole 40 mg Tablet,Delayed Release (Dr/Ec) 40 mg PO BID 30 Days Qty: 60 RF: 0 Continued cyanocobalamin (vitamin B-12) [Vitamin B-12] 2,500 mcg Tablet, Sublingual 2,500 mcg SUBLINGUAL DAILY RF: 0 amlodipine 2.5 mg Tablet 2.5 mg PO DAILY RF: 0 warfarin 5 mg Tablet 5 mg PO DAILY RF: 0 diphenhydramine-acetaminophen [Tylenol PM Extra Strength] 25-500 mg Tablet 1 tab PO HS PRN (Reason: Sleep) RF: 0 lisinopril 40 mg Tablet 40 mg PO DAILY RF: 0 iron 18 mg Tablet 28 mg PO DAILY RF: 0 Symbicort 80-4.5 mcg/actuation Hfa Aerosol Inhaler 2 puff INHALATION BID PRN (Reason: Shortness Of Breath) RF: 0 Trelegy Ellipta 100-62.5-25 mcg Blister With Device 1 inh INHALATION DAILY RF: 0 Discontinued naproxen sodium 220 mg Tablet 220 mg PO Q12H PRN (Reason: Pain) RF: 0 hydrochlorothiazide 25 mg Tablet 25 mg PO DAILY RF: 0 Discharge Orders: Discharge Order (Routine); Ordered 10/10/19 Ordered By: Cheri Fonseca Admission Data Admit Date/Time: 09/30/19 19:17 Attending Provider: Cheri Fonseca Admit Provider: Addison García Primary Care Provider: PCP,NO Other Providers: Addison García ; Xuan Gaspar ; Frank Schultz ; Jacinta Garcia Other Interventions: Discharge Summary Assessment (RN) Last Done: 10/10/19 13:27 DC Date/Time DO NOT enter until pt leaves facility: 10/10/19 15:20
== END 2019-10-10 15:20 | disposition home or self-care (01) | DRG 813 ==
LOC: ED 17:06 → SUATTDRO 19:17 → 1E 19:17 → 2S 10-02 14:16